=== PATIENT | male | born 1950 | race Caucasian/White ===

== ENCOUNTER 2021-05-22 22:46 | Emergency (ER) | payer MEDICARE, OTHER ==
--- OUTSIDE RECORDS SUMMARY | 2021-05-22 22:55 | XMS REPORT | Encounter Summary ---
Author Author Department of [facility] KAVEH hudson Organization Department of [facility] Aff rs Address Unknown Phone Unavailable Care Team Providers Care Prosthetic Dentist Name Role Phone RADHA NAYLOR PCP Unavailable Insurance Providers: All historical and current Section Date Range: From patient's date of to the date document was create d. This section includes the names of all active insurance providers for the julieth allen Insurance Provider Type of Coverage Plan Name Start of Policy [place] End of Policy Coverage Group Number Member ID Insurance Provider's Telephone N umber Policy [place]'s Name Patient's Relationship to Policy [place] MEDICARE (WNR) MEDICARE (M) PART A Oct 08, 2005 PART A [id number] [phone] KAVEH NGUYEN PATIENT MEDICARE (WNR) MEDICARE (M) PART B Oct 08, 2005 PART B [id number] [phone] KAVEH NGUYEN PATIENT MEDICARE (WNR) MEDICARE (M) PART A Oct 08, 2005 PART A [id number] KAVEH NGUYEN PATIENT MEDICARE (WNR) MEDICARE (M) PART B Oct 08, 2005 PART B [id number] KAVEH NGUYEN PATIENT MEDICARE (WNR) MEDICARE (M) PART A Oct 08, 2005 PART A [id number] KAVEH NGUYEN PATIENT MEDICARE (WNR) MEDICARE (M) PART B Oct 08, 2005 PART B [id number] KAVEH NGUYEN PATIENT Selected Encounter This section includes the information on record at [place] for the Encounter. Date/Time Encounter Type Encounter Description Reason Provider Source Nov 24, 2020 02:10 PM Outpatient Encounter ADMIN PAT ACTIVTIES (MICA SILVA) IHE Encounter Template Text not used by [facility] Assessments - Encounter Diagnoses No Data Provided for This Section Plan of Treatment: Future Appointments (+ 6 months) and Future Tests (+/- 45 day s) No Data Provided for This Section Surgical Procedures: All associated to the encounter No Data Provided for This Section Lab Results: +/- 30 days of the encounter No Data Provided for This Section Vital Signs: All taken on the encounter date No Data Provided for This Section Immunizations: All administered on the encounter date No Data Provided for This Section Social History: Smoking Status (Most current) and Tobacco Use (All prior to enco unter date) This section includes the most current, and the historical, smoking and tobacco- related health factors from the [place] facility where the Encounter took place. Current Smoking Status This section includes the most current smoking, or tobacco -related health factor, from the [place] facility where the Encounter took place. Date/Time Current Smoking Status Comment Facility Apr 01, 2014 11:00 AM NEVER USED TOBACCO or not in last 7yrs [facility] Tobacco Use History This section includes a history of the smoking, or tobacco -related health factors, that were collected on or before the date of the Encoun ter. The data comes from the [place] facility where the Encounter took place. Date/Time Smoking Status/Tobacco Use Comment [facility] Apr 01, 2014 11:00 AM V16 TOBACCO CESSATION > 7 YR [facility] Apr 01, 2014 11:00 AM V16 TOBACCO USE SCREEN [facility] February 17, 2013 11:00 AM NEVER USED TOBACCO or not in last 7yrs [facility] February 17, 2013 11:00 AM V16 TOBACCO CESSATION > 7 YR [facility] February 17, 2013 11:00 AM V16 TOBACCO USE SCREEN [facility] Jul 06, 2011 09:30 AM NEVER USED TOBACCO or not in last 7yrs [facility] Jul 06, 2011 09:30 AM V16 TOBACCO CESSATION > 7 YR [facility] Jul 06, 2011 09:30 AM V16 TOBACCO USE SCREEN [facility] Aug 09, 2007 03:00 PM NEVER USED TOBACCO or not in last 7yrs [facility] Nov 22, 2004 10:00 AM TOBACCO CESSATION: <1 YEAR QUIT IN 1985 [facility] Advance Directives: All historical and current Section Date Range: From patient's date of to the date document was create d. This section includes ALL of a patient's completed or amen ded VA Advance and Rescinded Directives. The entries below indicate that a direc tive exists for the patient, but an actual copy is not included with this docume nt. The data comes from all [place] facilities. Date Advance Directives Provider Source February 17, 2013 ADVANCE DIRECTIVE DISCUSSION BRUCE SUMMERS [facility]len [facility] Radiology Reports: +/- 30 days of the encounter No Data Provided for This Section Pathology Reports: +/- 30 days of the encounter No Data Provided for This Section Encounter Notes: All associated encounter notes This section contains the clinical notes associated to the Encounter. Date/Time Encounter Note(s) Provider Source Nov 24, 2020 02:10 PM CAREGIVER CERTIFICATE: LOCAL TITLE: CSP SUPPORT NOTE STANDARD TITLE: CAREGIVER CERTIFICATE DATE OF NOTE: NOV 24, 2020@14:10 ENTRY DATE: NOV 24, 2020@14:10:37 AUTHOR: KRISHNA RUCKER MA COSIGNER: URGENCY: STATUS: COMPLETED CSC attempted to contact and his SO/CG to f/u on their application for the CSP PCAFC. There was no answer. CSC left a v-mail requesting a return call. /stephanie/ KRISHNA RUCKER TEACHER MUSIC Signed: 11/24/2020 14:11 KRISHNA RUCKER [facility]
--- OUTSIDE RECORDS SUMMARY | 2021-05-22 22:55 | XMS REPORT | Encounter Summary ---
Author Author Department of [facility] KAVEH hudson Organization Department of [facility] Aff rs Address Unknown Phone Unavailable Care Team Providers Care Metal Furniture Repairer Name Role Phone RADHA NAYLOR PCP Unavailable [...] PART A Oct 08, 2005 PART A [id number] 84A [phone] KAVEH NGUYEN PATIENT MEDICARE (WNR) MEDICARE (M) PART B Oct 08, 2005 PART B [id number] 84A [phone] KAVEH NGUYEN PATIENT MEDICARE (WNR) MEDICARE (M) PART A Oct 08, 2005 PART A [id number] KAVEH NGUYEN PATIENT MEDICARE (WNR) MEDICARE (M) PART B Oct 08, 2005 PART B [id number] KAVEH NGUYEN PATIENT MEDICARE (WNR) MEDICARE (M) PART A Oct 08, 2005 PART A [id number] KAVEH NGUYEN PATIENT MEDICARE (WNR) MEDICARE (M) PART B Oct 08, 2005 PART B [id number] 84A [phone] KAVEH NGUYEN PATIENT Selected Encounter This section includes the information on record at [place] for the Encounter. Date/Time Encounter Type Encounter Description Reason Provider Source Sep 28, 2020 01:25 PM Outpatient Encounter ADMIN PAT ACTIVTIES (MICA SILVA) IHE Encounter Template Text not used by [place] Assessments - Encounter Diagnoses No Data Provided [...] and tobacco- related health factors from the [place] facility where the Encounter took place. Current Smoking Status This section includes the most current smoking, or tobacco -related health factor, from the [place] facility where the Encounter took place. Date/Time Current Smoking Status Comment Facility Apr 01, 2014 11:00 AM NEVER USED TOBACCO or not in last 7yrs [facility] Tobacco Use History This section includes a history of the smoking, or tobacco -related health factors, that were collected on or before the date of the Encoun ter. The data comes from the [place] facility where the Encounter took place. Date/Time Smoking Status/Tobacco Use Comment [facility] Apr 01, 2014 11:00 AM V16 TOBACCO CESSATION > 7 YR [facility] Apr 01, 2014 11:00 AM V16 TOBACCO USE SCREEN [facility] February 17, 2013 11:00 AM NEVER USED TOBACCO or not in last 7yrs [facility] February 17, 2013 11:00 AM V16 TOBACCO CESSATION > 7 YR [facility] February 17, 2013 11:00 AM V16 TOBACCO USE SCREEN [facility] Jul 06, 2011 09:30 AM NEVER USED TOBACCO or not in last 7yrs [facility] Jul 06, 2011 09:30 AM V16 TOBACCO CESSATION > 7 YR [facility] Jul 06, 2011 09:30 AM V16 TOBACCO USE SCREEN [facility] Aug 09, 2007 03:00 PM NEVER USED TOBACCO or not in last 7yrs [facility] Nov 22, 2004 10:00 AM TOBACCO CESSATION: <1 YEAR QUIT IN 1985 [facility] Advance Directives: All historical and current Section [...] docume nt. The data comes from all [place] facilities. Date Advance Directives Provider Source February 17, 2013 ADVANCE DIRECTIVE DISCUSSION BRUCE SUMMERS [facility] Radiology Reports: +/- 30 days of the encounter No Data Provided for This Section Pathology Reports: +/- 30 days of the encounter No Data Provided for This Section Encounter Notes: All associated encounter notes This section contains the clinical notes associated to the Encounter. Date/Time Encounter Note(s) Provider Source Sep 28, 2020 01:25 PM ADMINISTRATIVE NOTE: LOCAL TITLE: PATIENT SCHEDULING NOTE STANDARD TITLE: ADMINISTRATIVE NOTE DATE OF NOTE: SEP 28, 2020@13:25 ENTRY DATE: SEP 28, 2020@13:25:09 AUTHOR: SIRIA PEDRO EXP COSIGNER: URGENCY: STATUS: COMPLETED PATIENT SCHEDULING NOTE Has ADDENDA Clinic scheduling for: [facility] VIDEO CONNECT Reason for scheduling: CONSULT Attempt to Contact by Telephone Called patient at: Left voicemail for patient to return call to clinic /stephanie/ SIDNEY Brown Telehealth Clinical Pit Supervisor Signed: 09/28/2020 13:26 09/29/2020 ADDENDUM STATUS: COMPLETED Patient Returned Call SPOKE WITH [facility]ARE[facility] Patient's identity verified by two identifiers: Full Name: KAVEH NGUYEN Date of : February CAREGIVER WISHES TO BE CALLED BACK AFTER ANISH HOLIDAY /SIDNEY Lama Telehealth Clinical Pit Supervisor Signed: 09/29/2020 10:15 SIRIA PEDRO [facility]
--- OUTSIDE RECORDS SUMMARY | 2021-05-22 22:55 | XMS REPORT | Encounter Summary ---
Author Author Department of [facility] KAVEH hudson Organization Department of [facility] rs Address Unknown Phone Unavailable Care Team Providers Care Rfp Writer Name Role Phone RADHA NAYLOR PCP Unavailable [...] PART A Oct 08, 2005 PART A [id number] 84A [phone] KAVEH NGUYEN PATIENT MEDICARE (WNR) MEDICARE (M) PART B Oct 08, 2005 PART B [id number] 84A [phone] KAVEH NGUYEN PATIENT MEDICARE (WNR) MEDICARE (M) PART A Oct 08, 2005 PART A [id number] KAVEH NGUYEN PATIENT MEDICARE (WNR) MEDICARE (M) PART B Oct 08, 2005 PART B [id number] KAVEH NGUYEN PATIENT MEDICARE (WNR) MEDICARE (M) PART A Oct 08, 2005 PART A [id number] [phone] KAVEH NGUYEN PATIENT MEDICARE (WNR) MEDICARE (M) PART B Oct 08, 2005 PART B [id number] 84A [phone] KAVEH NGUYEN PATIENT Selected Encounter This section includes the information on record at [place] for the Encounter. Date/Time Encounter Type Encounter Description Reason Provider Source Jun 28, 2020 12:00 AM Outpatient Encounter EVENT (HISTORICAL) IHE Encounter Template Text not used by [place] Assessments - Encounter Diagnoses No Data Provided [...] and tobacco- related health factors from the [place] facility where the Encounter took place. Current Smoking Status This section includes the most current smoking, or tobacco -related health factor, from the [place] facility where the Encounter took place. Date/Time Current Smoking Status Comment Facility Apr 01, 2014 11:00 AM NEVER USED TOBACCO or not in last 7yrs [facility] Tobacco Use History This section includes a history of the smoking, or tobacco -related health factors, that were collected on or before the date of the Encoun ter. The data comes from the [place] facility where the Encounter took place. Date/Time Smoking Status/Tobacco Use Comment [facility] Apr 01, 2014 11:00 AM V16 TOBACCO CESSATION > 7 YR [facility] Apr 01, 2014 11:00 AM V16 TOBACCO USE SCREEN [facility] February 17, 2013 11:00 AM NEVER USED TOBACCO or not in last 7yrs [facility] February 17, 2013 11:00 AM V16 TOBACCO CESSATION > 7 YR [facility] February 17, 2013 11:00 AM V16 TOBACCO USE SCREEN [facility] Jul 06, 2011 09:30 AM NEVER USED TOBACCO or not in last 7yrs [facility] Jul 06, 2011 09:30 AM V16 TOBACCO CESSATION > 7 YR [facility] Jul 06, 2011 09:30 AM V16 TOBACCO USE SCREEN [facility] Aug 09, 2007 03:00 PM NEVER USED TOBACCO or not in last 7yrs [facility] Nov 22, 2004 10:00 AM TOBACCO CESSATION: <1 YEAR QUIT IN 1985 [facility] Advance Directives: All historical and current Section [...] docume nt. The data comes from all [place] facilities. Date Advance Directives Provider Source February 17, 2013 ADVANCE DIRECTIVE DISCUSSION BRUCE SUMMERS [place] [facility] Radiology Reports: +/- 30 days of the encounter No Data Provided for This Section Pathology Reports: +/- 30 days of the encounter No Data Provided for This Section Encounter Notes: All associated encounter notes This section contains the clinical notes associated to the Encounter. Date/Time Encounter Note(s) Provider Source Jun 28, 2020 12:00 AM SCANNED NOTE: LOCAL TITLE: OUTSIDE CLINICAL DOCUMENTS STANDARD TITLE: SCANNED NOTE DATE OF NOTE: JUN 28, 2020 ENTRY DATE: OCT 16, 2020@13:46:34 AUTHOR: ROLAND COLLINS EXP COSIGNER: URGENCY: STATUS: COMPLETED VistA Imaging - Scanned Document SCANNED DOCUMENT SIGNATURE NOT REQUIRED Electronically Filed: 10/16/2020 by: ROLAND collins [facility]
--- OUTSIDE RECORDS SUMMARY | 2021-05-22 22:55 | XMS REPORT | Encounter Summary ---
Author Author Department of [facility] KAVEH hudson Organization Department of [facility] Aff rs Address Unknown Phone Unavailable Care Team Providers Care Puddler Helper Name Role Phone RADHA NAYLOR PCP Unavailable [...] PART A Oct 08, 2005 PART A [id number] 84A [phone] KAVEH NGUYEN PATIENT MEDICARE (WNR) MEDICARE (M) PART B Oct 08, 2005 PART B [id number] [phone] KAVEH NGUYEN PATIENT MEDICARE (WNR) MEDICARE (M) PART A Oct 08, 2005 PART A [id number] KAVEH NGUYEN PATIENT MEDICARE (WNR) MEDICARE (M) PART B Oct 08, 2005 PART B [id number] KAVEH NGUYEN PATIENT MEDICARE (WNR) MEDICARE (M) PART A Oct 08, 2005 PART A [id number] KAVEH NGUYEN PATIENT MEDICARE (WNR) MEDICARE (M) PART B Oct 08, 2005 PART B [id number] 84A [phone] KAVEH NGUYEN PATIENT Selected Encounter This section includes the information on record at [place] for the Encounter. Date/Time Encounter Type Encounter Description Reason Provider Source Sep 27, 2020 03:35 PM Outpatient Encounter ADMIN PAT ACTIVTIES (MICA SILVA) IHE Encounter Template Text not used by [place] Assessments - Encounter Diagnoses No Data Provided [...] and tobacco- related health factors from the [place] facility where the Encounter took place. Current Smoking Status This section includes the most current smoking, or tobacco -related health factor, from the [place] facility where the Encounter took place. Date/Time Current Smoking Status Comment Facility Apr 01, 2014 11:00 AM NEVER USED TOBACCO or not in last 7yrs [facility] Tobacco Use History This section includes a history of the smoking, or tobacco -related health factors, that were collected on or before the date of the Encoun ter. The data comes from the [place] facility where the Encounter took place. Date/Time Smoking Status/Tobacco Use Comment [facility] Apr 01, 2014 11:00 AM V16 TOBACCO CESSATION > 7 YR [facility] Apr 01, 2014 11:00 AM V16 TOBACCO USE SCREEN [facility] February 17, 2013 11:00 AM NEVER USED TOBACCO or not in last 7yrs [facility] February 17, 2013 11:00 AM V16 TOBACCO CESSATION > 7 YR [facility] February 17, 2013 11:00 AM V16 TOBACCO USE SCREEN [facility] Jul 06, 2011 09:30 AM NEVER USED TOBACCO or not in last 7yrs [facility] Jul 06, 2011 09:30 AM V16 TOBACCO CESSATION > 7 YR [facility] Jul 06, 2011 09:30 AM V16 TOBACCO USE SCREEN [facility] Aug 09, 2007 03:00 PM NEVER USED TOBACCO or not in last 7yrs [facility] Nov 22, 2004 10:00 AM TOBACCO CESSATION: <1 YEAR QUIT IN 1985 [facility] Advance Directives: All historical and current Section [...] docume nt. The data comes from all [place] facilities. Date Advance Directives Provider Source February 17, 2013 ADVANCE DIRECTIVE DISCUSSION BRUCE SUMMERS [place] [facility] Radiology Reports: +/- 30 days of the encounter No Data Provided for This Section Pathology Reports: +/- 30 days of the encounter No Data Provided for This Section Encounter Notes: All associated encounter notes This section contains the clinical notes associated to the Encounter. Date/Time Encounter Note(s) Provider Source Sep 27, 2020 03:35 PM CAREGIVER CERTIFICATE: LOCAL TITLE: CSP SUPPORT NOTE STANDARD TITLE: CAREGIVER CERTIFICATE DATE OF NOTE: SEP 27, 2020@15:35 ENTRY DATE: SEP 27, 2020@15:36:02 AUTHOR: KRISHNA RUCKER MA EXP COSIGNER: URGENCY: STATUS: COMPLETED CSP SUPPORT NOTE Has ADDENDA CSC made contact with CG to f/u on the medical records from [facility] and the VFAI that needs to be rescheduled. CG reports CSC needs to contact [facility] to request the records, as the [place] has completed the SUSY. CSC discussed the need to complete the VAFI as soon as possible as they are nearing their 90 days with pending anirudh. CG indicated they could not get the laptop to work. CG expressed she is in [place] with her dtr who is having surgery tomorrow and will come up on Sunday on his own. She reports that she is not sure he son-in-law is going to be able to help her as his will be having surgery. CG would like to do the practice call with the telehealth department. CSC to place consult and advised that once that is completed they need to get the VFAI rescheduled. CG voiced understanding and agreement with this plan. /stephanie/ KRISHNA RUCKER LCSW Signed: 09/28/2020 07:52 Receipt Acknowledged By: 09/28/2020 13:57 /stephanie/ Elinor FLYNN,geothermal installer Nurse 09/28/2020 ADDENDUM STATUS: COMPLETED CSRN received a VM from [facility]. She verbalized she was not able to complete the connection with [facility] telehealth support line due to [place] does not work with [facility]. She has nephew who has a laptop and he will come with to [place] for [place]. She will have the nephew call this CSRN on during for VFAI. CSRN contacted [facility] which is in [place]. She reports the [place] is driving in tomorrow from [facility] and will take about 5 hours. This CSRN was not able to accommodate requested times/days for VFAI. [facility] reports no other options as she has to care for her daughter for 2 weeks. Due to difficulty with coordinating assistance for [place] VVC appt, LOLYN offered in person visit for [place] at [facility] in [facility] and explained to [facility] she does not need to be present for assessment. CSRN was not able to reach [place] via phone and ask that [facility] inform [place] of offer. CSC notified. /mikey FLYNN,geothermal installer Nurse Signed: 09/28/2020 14:16 Receipt Acknowledged By: 10/05/2020 08:25 /mikey RUCKER LCSW 09/28/2020 ADDENDUM STATUS: COMPLETED [facility] left message for CSRN to schedule 10/06/2020 at 1000 for Nephew to assist with VFAI with [place]. CSRN attempted to reach [facility] via phone and only received VM. Message left confirming appt for 10/06/2020 at 10am. /mikey FLYNN,geothermal installer Nurse Signed: 09/28/2020 14:56 Receipt Acknowledged By: 10/05/2020 08:26 /mikey RUCKER LCSW 10/06/2020 ADDENDUM STATUS: COMPLETED 10/05/2020 8am: VVC scheduled with Raymundo R for today 10/05/2020 at 10 am. CSRN received call from [facility] requesting someone call and try to set up a VVC via his phone as he was not with her in [place]. CSRN did contact who was not able to utilize phone as it was a "go phone" without access to email. CSRN informed [place] visit for today would be cancelled and attempted to offer other opportunities for assessment. declined in person at [place], declined asking family to assist. CSRN informed of [place] of need to complete VFAI prior to 90 days or will need to reapply. [place] reported to he would see if he could find someone and call back. /es/ Elinor Ortiz MSN,geothermal installer Nurse Signed: 10/06/2020 13:15 Receipt Acknowledged By: 10/06/2020 13:18 /stephanie/ KRISHNA CALDERON LCSW [facility]
--- OUTSIDE RECORDS SUMMARY | 2021-05-22 22:55 | XMS REPORT | Encounter Summary ---
Author Author Department of [facility] KAVEH hudson Organization Department of [facility] Aff rs Address Unknown Phone Unavailable Care Team Providers Care Mopper Name Role Phone RADHA NAYLOR PCP Unavailable [...] PART A Oct 08, 2005 PART A [id number] [phone] KAVEH NGUYEN PATIENT MEDICARE (WNR) MEDICARE (M) PART B Oct 08, 2005 PART B [id number] [phone] KAVEH NGUYEN PATIENT MEDICARE (WNR) MEDICARE (M) PART A Oct 08, 2005 PART A [id number] KAVEH NGUYEN PATIENT MEDICARE (WNR) MEDICARE (M) PART B Oct 08, 2005 PART B [id number] KAVEH NGUYEN PATIENT MEDICARE (WNR) MEDICARE (M) PART A Oct 08, 2005 PART A [id number] [phone] KAVEH NGUYEN PATIENT MEDICARE (WNR) MEDICARE (M) PART B Oct 08, 2005 PART B [id number] KAVEH NGUYEN PATIENT Selected Encounter This section includes the information on record at [place] for the Encounter. Date/Time Encounter Type Encounter Description Reason Provider Source Nov 18, 2020 01:39 PM Outpatient Encounter ADMIN PAT ACTIVTIES (IRAIDA NONCJerome) PASTORA MCCLOUD Encounter Template Text not used by VA [...] and tobacco- related health factors from the [place] facility where the Encounter took place. Current Smoking Status This section includes the most current smoking, or tobacco -related health factor, from the [place] facility where the Encounter took place. Date/Time Current Smoking Status Comment Facility Apr 01, 2014 11:00 AM NEVER USED TOBACCO or not in last 7yrs [facility] Tobacco Use History This section includes a history of the smoking, or tobacco -related health factors, that were collected on or before the date of the Encoun ter. The data comes from the [place] facility where the Encounter took place. Date/Time Smoking Status/Tobacco Use Comment [facility] Apr 01, 2014 11:00 AM V16 TOBACCO CESSATION > 7 YR [facility] Apr 01, 2014 11:00 AM V16 TOBACCO USE SCREEN [facility] February 17, 2013 11:00 AM NEVER USED TOBACCO or not in last 7yrs [facility] February 17, 2013 11:00 AM V16 TOBACCO CESSATION > 7 YR [facility] February 17, 2013 11:00 AM V16 TOBACCO USE SCREEN [facility] Jul 06, 2011 09:30 AM NEVER USED TOBACCO or not in last 7yrs [facility] Jul 06, 2011 09:30 AM V16 TOBACCO CESSATION > 7 YR [facility] Jul 06, 2011 09:30 AM V16 TOBACCO USE SCREEN [facility] Aug 09, 2007 03:00 PM NEVER USED TOBACCO or not in last 7yrs [facility] Nov 22, 2004 10:00 AM TOBACCO CESSATION: <1 YEAR QUIT IN 1985 [facility] Advance Directives: All historical and current Section [...] docume nt. The data comes from all [place] facilities. Date Advance Directives Provider Source February 17, 2013 ADVANCE DIRECTIVE DISCUSSION [facility] Radiology Reports: +/- 30 days of the encounter No Data Provided for This Section Pathology Reports: +/- 30 days of the encounter No Data Provided for This Section Encounter Notes: All associated encounter notes This section contains the clinical notes associated to the Encounter. Date/Time Encounter Note(s) Provider Source Nov 18, 2020 01:39 PM CAREGIVER CERTIFICATE: LOCAL TITLE: CSP PCAFC CEAT REVIEW CONSULT STANDARD TITLE: CAREGIVER CERTIFICATE DATE OF NOTE: NOV 18, 2020@13:39 ENTRY DATE: NOV 18, 2020@13:40:09 AUTHOR: PASTORA MCCLOUD COSIGNER: URGENCY: STATUS: COMPLETED Centralized Eligibility and Appeals Team (CEAT) Review Note The Centralized Eligibility and Appeals Team is responsible for dispositioning initial and ongoing eligibility determinations, to include level of care, as well as appeal determinations within the Caregiver Support Program's (CSP) Program of Comprehensive Assistance for Family Caregivers (PCAFC). PCAFC is a clinical program involving initial assessment and periodic reassessment for continued eligibility based on the needs of the eligible and/or Family Caregivers. Decisions to discontinue an individual's participation may be impacted by changes in the [place] and/or Family Caregiver(s)' circumstances, changes in needs or abilities, or VA may seek to discharge a participant due to failure to meet expectations or otherwise adhere to the intent of the program. Date of CEAT Review: Nov Full Name: KAVEH NGUYEN Iliana SSN: [id number] Date of : February Address: [address], [facility] Phone number: Reasons for CEAT review: Initial Application Review and at least one Family Caregiver applicant have submitted a valid application for the PCA. 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 Yes 3) The individual is in need of personal care services for a minimum of six continuous months based on any one of the following: An inability to perform an activity of daily living or A need for supervision, protection, or instruction *In need of personal care services means that the eligible [place] requires in-person personal care services from another person, and without such personal care services, alternative in-person caregiving arrangements (including respite care or assistance of an alternative caregiver) would be required to support the eligible [place]'s safety. *Personal Care Services means care or assistance of another person necessary in order to support the eligible 's health and well-being, and perform personal functions required in everyday living ensuring the eligible [place] remains safe from hazards or dangers incident to his or her daily environment. No 4) It is in the best interest of the individual to participate in the program. *In the best interest means a clinical determination that participation in PCA is likely to be beneficial to the [place] or media services specialist. Such determination will include consideration, by a clinician, of whether participation in the program significantly enhances the 's or media services specialist's ability to live safely in a home setting, supports the [place]'s or media services specialist's potential progress in rehabilitation, if such potential exists, increases the [place]'s or media services specialist's potential independence, if such potential exists, and creates an environment that supports the health and well-being of the or media services specialist. No 5) Personal care services that would be provided by the Family Caregiver will not be simultaneously and regularly provided by or through another individual or entity. Yes 6)The individual receives care at home or will do so if [place] designates a Family Caregiver. Yes 7) The individual receives ongoing care from a primary care team or will do so if [place] designates a Family Caregiver. *Primary care team means one or more medical services assistant who care for a patient based on the clinical needs of the patient. Primary care teams must include a VA primary care provider who is a physician, advanced practice nurse, or a physician early childhood teacher assistant. Yes CAREGIVER REQUIREMENTS Primary Family Caregiver applicant Primary Family Caregiver applicant name: Elinor Gillespie 1) Is the Primary Family Caregiver applicant 18 years of age or older? Yes 2) Is the Primary Family Caregiver applicant a family member or will live with the if designated as a Family Caregiver? Yes Relationship to : Significance other Residence of applicant: Same as . 3) Is there a determination by VA of abuse or neglect of the [place] by the Primary Family Caregiver applicant? No PROGRAM PARTICIPATION REQUIREMENTS 1)The application process is completed within 90 days. No Application delay is solely due to the VA. 2) The [place] or media services specialist resides in a State, defined as each of the several States, Territories, and possessions of the [place], the district of [place], and the [facility]. Yes DETERMINATION SECTION Denied - The and Family Caregiver applicant have been found not eligible for the Program of Comprehensive Assistance for Family Caregivers. - or media services specialist does not require personal care services for a minimum of 6 continuous months based on an inability to perform an ADL and/or a need for supervision, protection or instruction. - Participation in the Program of Comprehensive Assistance for Family Caregivers was deemed not in the [place]'s best interest Centralized Eligibility and Appeals Team summary of determination: The VISN 19 CEAT reviewed all available records and discussed the application on the date indicated above. There was insufficient objective clinical documentation supporting a need for personal care services meeting the statutory requirements (38 U.S.C. 1720G(a)(3)(C)(ii), (iv)). See 85 FR 02387 (December 12, 2019) [[employer] [place] / Vol. 85, No. 148 / May 07, 2020, p. 52466]. The [place] should continue to follow-up with their primary care team and/or other provider(s). /stephanie/ Pastora Mccloud MD MPH Board Certified Physical Med & Rehab Signed: 11/18/2020 13:42 Receipt Acknowledged By: * AWAITING SIGNATURE * BENJAMIN RAMSAY * AWAITING SIGNATURE * SIRENA DEL ROSARIO * AWAITING SIGNATURE * KRISHNA RUCKER ANGELICA C [facility]
--- OUTSIDE RECORDS SUMMARY | 2021-05-22 22:55 | XMS REPORT | Encounter Summary ---
Author Author Department of [facility] KAVEH hudson Organization Department of [facility] rs Address Unknown Phone Unavailable Care Team Providers Care Plaster Molder Name Role Phone RADHA NAYLOR PCP Unavailable [...] PART A Oct 08, 2005 PART A [id number] [phone] KAVEH NGUYEN PATIENT MEDICARE (WNR) MEDICARE (M) PART B Oct 08, 2005 PART B [id number] [phone] KAVEH NGUYEN PATIENT MEDICARE (WNR) MEDICARE (M) PART A Oct 08, 2005 PART A [id number] KAVEH NGUYEN PATIENT MEDICARE (WNR) MEDICARE (M) PART B Oct 08, 2005 PART B [id number] KAVEH NGUYEN PATIENT MEDICARE (WNR) MEDICARE (M) PART A Oct 08, 2005 PART A [id number] [phone] KAVEH NGUYEN PATIENT MEDICARE (WNR) MEDICARE (M) PART B Oct 08, 2005 PART B [id number] [phone] KAVEH NGUYEN PATIENT Selected Encounter This section includes the information on record at [place] for the Encounter. Date/Time Encounter Type Encounter Description Reason Provider Source May 16, 2021 11:41 AM Outpatient Encounter ADMIN PAT ACTIVTIES (MICA SILVA) IHE Encounter Template Text not used by [place] Assessments - Encounter Diagnoses No Data Provided [...] Use (All prior to enco unter date) No Data Provided for This Section Advance Directives: All historical and current Section [...] docume nt. The data comes from all [place] facilities. Date Advance Directives Provider Source February 17, 2013 ADVANCE DIRECTIVE DISCUSSION [facility] Radiology Reports: +/- 30 days of the encounter No Data Provided for This Section Pathology Reports: +/- 30 days of the encounter No Data Provided for This Section Encounter Notes: All associated encounter notes This section contains the clinical notes associated to the Encounter. Date/Time Encounter Note(s) Provider Source May 16, 2021 11:41 AM LETTERS: LOCAL TITLE: PATIENT SCHEDULING LETTER STANDARD TITLE: LETTERS DATE OF NOTE: MAY 16, 2021@11:41 ENTRY DATE: MAY 16, 2021@11:41:56 AUTHOR: VINAYAK HERNANDEZ EXP COSIGNER: URGENCY: STATUS: COMPLETED [place], [place] [address] MAY 16, 2021 KAVEH NGUYEN [address] [place] [id number] Dear , We have attempted to contact you regarding your care at the [facility]. We have been unsuccessful in our attempts to reach you by telephone. Your health and well-being are important to us. Please call to schedule a patient appointment for clinical care, or for requested consult care. These phone numbers are answered between 8:00 AM and 4:00 PM. If calling after hours, please leave a message with your full name and contact information. If you have decided that you do NOT wish to receive care at the [facility] or you no longer wish to have your consult scheduled,please call the above number to let us know so that we will not keep trying to contact you. Thank you for your service to our Nation. It is our mission to honor [place] [employer] by providing them with exceptional, timely, [place] centered care. Sincerely, [facility] [address] [place], [place] [address] If you have already spoken with us regarding this scheduling, please disregard this letter. VINAYAK HERNANDEZ [facility]
--- OUTSIDE RECORDS SUMMARY | 2021-05-22 22:55 | XMS REPORT | Encounter Summary ---
Author Author Department of [facility] KAVEH hudson Organization Department of [facility] rs Address Unknown Phone Unavailable Care Team Providers Care Investor Relations Manager Name Role Phone RADHA NAYLOR PCP Unavailable [...] PART A Oct 08, 2005 PART A [id number] [phone] KAVEH NGUYEN PATIENT MEDICARE (WNR) MEDICARE (M) PART B Oct 08, 2005 PART B [id number] [phone] KAVEH NGUYEN PATIENT MEDICARE (WNR) MEDICARE (M) PART A Oct 08, 2005 PART A [id number] KAVEH NGUYEN PATIENT MEDICARE (WNR) MEDICARE (M) PART B Oct 08, 2005 PART B [id number] KAVEH NGUYEN PATIENT MEDICARE (WNR) MEDICARE (M) PART A Oct 08, 2005 PART A [id number] KAVEH NGUYEN PATIENT MEDICARE (WNR) MEDICARE (M) PART B Oct 08, 2005 PART B [id number] KAVEH NGUYEN PATIENT Selected Encounter This section includes the information on record at [place] for the Encounter. Date/Time Encounter Type Encounter Description Reason Provider Source Oct 07, 2020 05:45 PM [facility]ICE OF RN EA 15 MIN CAREGIVER SUPP ORT PROGRAM ICD-10-CM Z78.9 Other specified health status with Provider Comments: Other specified Health Status JORDANMARCUS Hussein NICKRaymundo Encounter Template Text not used by [place] Assessments - Encounter Diagnoses This section includes the primary and secondary diag noses documented for the Encounter. Date/Time Primary/Secondary Diagnosis Diagnosis Name Provider Source Oct 12, 2020 12:12 PM PRIMARY Other specified health status MARCUS [facility] Plan of Treatment: Future Appointments (+ 6 months) and Future Tests (+/- 45 day s) No Data Provided for This Section Surgical Procedures: All associated to the encounter This section includes all Surgical Procedures and Surgical Procedure Notes assoc iated to the Encounter. Surgical Procedures This section includes all Surgical Procedures associated to the Encounter. Surgical Procedure Date/Time Procedure Procedure Type Procedure Qualifiers Provider Source Oct 07, 2020 05:45 PM [facility] [place] of a Registered Nurse (RN) in the Home Health or Hospice Setting, each 15 minutes [facility] RN JOSE F [address] [facility] Surgical Notes There are no notes associated with this procedure. Lab Results: +/- 30 days of the [...] USED TOBACCO or not in last 7yrs [facility] Tobacco Use History This section includes a history of the smoking, or tobacco -related health factors, that were collected on or before the date of the Encoun ter. The data comes from the [place] facility where the Encounter took place. Date/Time Smoking Status/Tobacco Use Comment [facility] Apr 01, 2014 11:00 AM V16 TOBACCO CESSATION > 7 YR [facility] Apr 01, 2014 11:00 AM V16 TOBACCO USE [facility]CRE[address] [facility] February 17, 2013 11:00 AM NEVER USED TOBACCO or not in last 7yrs [facility] February 17, 2013 11:00 AM V16 TOBACCO CESSATION > 7 YR [facility] February 17, 2013 11:00 AM V16 [address] [facility]CRE[address] [facility] Jul 06, 2011 09:30 AM NEVER USED TOBACCO or not in last 7yrs [facility] Jul 06, 2011 09:30 AM V16 TOBACCO CESSATION > 7 YR [facility] Jul 06, 2011 09:30 AM V[address] [facility] Aug 09, 2007 03:00 PM NEVER USED TOBACCO or not in last 7yrs [facility] Nov 22, 2004 10:00 AM TOBACCO CESSATION: <1 [address] [place] [address] [facility] Advance Directives: All historical and current Section Date Range: From patient's date of to the date document was create d. This section includes ALL of a patient's completed or amen ded [place] Advance and Rescinded Directives. The entries below indicate that a direc tive exists for the patient, but an actual copy is not included with this docume nt. The data comes from all [place] facilities. Date Advance Directives Provider Source February 17, 2013 ADVANCE DIRECTIVE DISCUSSION BRUCE SUMMERS [facility] Radiology Reports: +/- 30 days of the encounter No Data Provided for This Section Pathology Reports: +/- 30 days of the encounter No Data Provided for This Section Encounter Notes: All associated encounter notes This section contains the clinical notes associated to the Encounter. Date/Time Encounter Note(s) Provider Source Oct 07, 2020 05:45 PM CAREGIVER CERTIFICATE: LOCAL TITLE: CSP PCAFC FUNCTIONAL ASSESSMENT INSTRUMENT STANDARD TITLE: CAREGIVER CERTIFICATE DATE OF NOTE: OCT 07, 2020@17:45 ENTRY DATE: OCT 12, 2020@11:41:07 AUTHOR: MARCUS GRAHAM EXP COSIGNER: URGENCY: STATUS: COMPLETED FUNCTIONAL ASSESSMENT INSTRUMENT The Program of Comprehensive Assistance for Family Caregivers (PCAFC) provides services and additional benefits to approved and designated Family Caregivers of eligible Veterans or service members who are in need of personal care services for a minimum of six continuous months based on any one of the following: - An inability to perform an activity of daily living; or - A need for supervision, protection, or instruction. The assessment of the need for personal care services is just one piece of the overall application process. This Functional Assessment Instrument captures the or service desk agent's functional needs, as it relates to the requirements for the [facility]. This assessment instrument should only be used with Veterans or service members who have applied to the [facility] and a consult has been placed for this assessment by a Caregiver Mink Rancher. The author completing this assessment must be in compliance with all required Caregiver Support Program and VA trainings. PART A: ACTIVITIES OF DAILY LIVING (ADLs) EATING Eating: Independent Defined as: The ability to use suitable utensils to bring food and/or liquid to the mouth and swallow food and/or liquid once the meal is placed before the person. GROOMING Oral hygiene: Independent Defined as: The ability to use suitable items to clean teeth. If applicable, the ability to insert and remove dentures into and from the mouth, and manage denture soaking and rinsing with use of equipment. Wash upper body: Independent Defined as: The ability to wash, rinse, and dry the face, hands, chest, and arms while sitting in a chair or bed. BATHING Shower/bathe self: Independent Defined as: The ability to bathe self, including washing, rinsing, and drying self. Does not include transferring in/out of tub/shower. DRESSING AND UNDRESSING Upper body dressing: Independent Defined as: The ability to dress and undress above the waist, including fasteners (if applicable). Lower body dressing: Independent Defined as: The ability to dress and undress below the waist, including fasteners; does not include footwear. Putting on/taking off footwear: Independent Defined as: The ability to put on and take off socks and shoes, or other footwear that is appropriate for safe mobility, including fasteners (if applicable). TOILETING Toileting hygiene: Independent Defined as: The ability to maintain perineal/menstrual hygiene and adjust clothes before and after voiding or having a bowel movement. If managing an ostomy, include wiping the opening but not managing equipment. PROSTHETICS Prosthetics (Use of Assistive Devices): Independent Defined as: Able to adjust special prosthetic or orthopedic appliances. The adjustment of appliances that any person with or without a disability would need assistance with should not be scored (for example, supports, belts, lacing at back, etc.). MOBILITY (POSITIONING/TRANSFERS) Roll left and right: Independent Defined as: The ability to roll from lying on back to left and right side, and return to lying on back. Sit to lying: Independent Defined as: The ability to move from sitting on side of bed to lying flat on the bed. Lying to sitting on side of bed: Independent Defined as: The ability to move from lying on the back to sitting on the side of the bed with feet flat on the floor and with no back support. Sit to stand: Independent Defined as: The ability to come to a standing position from sitting in a chair, wheelchair, or on the side of the bed. Chair/hcv-ee-[id number] transfer: Independent Defined as: The ability to transfer to and from a bed to a chair (or wheelchair). Toilet transfer: Independent Defined as: The ability to get on and off a toilet or commode. MOBILITY (WALKING) Walk 10 feet: Independent Defined as: Once standing, the ability to walk at least 10 feet in a room, corridor, or similar space. Walk 50 feet with two turns: Independent Defined as: Once standing, the ability to walk at least 50 feet and make two turns. Walk 150 feet: Independent Defined as: Once standing, the ability to walk at least 150 feet in a corridor or similar space. Walk 10 feet on uneven surfaces: Independent Defined as: The ability to walk 10 feet on uneven or sloping surfaces (indoor or outdoor) such as turf or gravel. 1 step (curb): Independent Defined as: The ability to go up and down a curb and/or up and down one step. 4 steps: Independent Defined as: The ability to go up and down four steps with or without a rail. 12 steps: Not applicable - Person does not usually do this activity Defined as: The ability to go up and down 12 steps with or without a rail. Picking up object: Independent Defined as: The ability to bend/stoop from a standing position to car pick up driver a small object, such as a spoon, from the floor. Walk indoors: Independent Defined as: The ability to walk from room to room, around furniture and other obstacles. Carry something in both hands: Independent Defined as: The ability to carry something in both hands while walking indoors (i.e., several dishes, light laundry basket, tray with food). Walk for 15 minutes: Not applicable - Person does not usually do this activity Defined as: The ability to walk without stopping or resting (i.e., through a department store, supermarket). Walk across a street: Independent Defined as: The ability to cross a street before light turns red. PART B: SUPERVISION, PROTECTION OR INSTRUCTION MEDICATION MANAGEMENT Does the person take any medication? Yes Does the person need assistance with medication management? Needs medication set-up Additional Comments: Beverly does not take any prescription medications. He does take supplements independently from bottles. He reports his CGER prepares a tea for his kidneys that contains "a lot of herbs and stuff". She mixes this up and stores in container for him to make "a tea everyday". SELF-PRESERVATION Does the person have the judgment and physical ability to cope, make appropriate decisions and take action in a changing environment or a potentially harmful situation? Independent Is this person at risk of self-neglect? No Beverly has the following risk factors: Not applicable Is this person at risk of neglect, abuse, or exploitation by another person? No What type of support does the person need in the home to remain safe, such as assistance with activities that require remembering, decision-making, or judgment? The person can be left alone without anyone checking in. What type of support does the person need away from home to remain safe, such as assistance with activities that require remembering, decision-making, or judgment? The person does not need help going anywhere. SAFETY Delusions/Hallucinations: Person engages in markedly inappropriate behavior that affects a person's daily functioning and social interactions. Behavior characterized by a radical change in personality and a distorted or diminished sense of reality. No Agitation: Person has a tendency, or would without an intervention, to suddenly or quickly become upset or violent. Yes Types(s) of agitation behaviors displayed: Easily agitated Type of intervention needed: Requires no intervention Frequency of intervention needed: Less than weekly Impulsivity: Person has a propensity, or would without an intervention, for sudden or spontaneous decisions or actions. No SELF-DIRECTION Can this person identify his/her own needs? Yes Can this person provide and/or arrange for his/her health and safety? Yes Additional Comments: VFAI completed today with via [facility] r/t COVID restrictions. and CGER have had difficulty with scheduling this visit r/t unable to connect to [facility] and CGER being out of town caring for family member. Today this CSRN contacted Beverly to work with him on what his plan was to complete this VFAI in relationship to time sensativity of application. The verbalized his 44 year old Nephew lived with him and letha salazar could assist. Nephew was able to install email on 's phone and connect via [facility]. CSRN offered to complete visit at this time with . denies Nephew's involvement in his care and only ask him to drive occasionally or mow the yard. reports uses [employer]xygen [employer]. Usually sleeps with it on. Has portable back pack devices. [place] and [place] with ADL's. He requires his Nephew or Significant Other(CGER) to provide transportation occasionally if traveling a distance (out of state). He utilizes the [facility] for health, dental and vision care. He takes no routine medications, only OTC supplements. He reports he drinks a herbal type tea made by CGER to prevent him from being on dialysis. He is not on any special diet. Beverly offered the opportunity to elaborate on the role of his significant other as his CGER. He reports he would probably be if it were not for her. 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 He attributes this to her help. No other needs ID by . Assessment completed Assessment time: /stephanie/ Marcus Graham MSN,computer support specialist Nurse Signed: 10/12/2020 12:09 Receipt Acknowledged By: * AWAITING SIGNATURE * KRISHNA RUCKER [facility]
--- OUTSIDE RECORDS SUMMARY | 2021-05-22 22:56 | XMS REPORT | Encounter Summary ---
Author Author Department of [facility] KAVEH hudson Organization Department of [facility] rs Address Unknown Phone Unavailable Care Team Providers Care Orchid Worker Name Role Phone RADHA NAYLOR PCP Unavailable [...] PART A Oct 08, 2005 PART A [id number] [id number] [phone] KAVEH NGUYEN PATIENT MEDICARE (WNR) MEDICARE (M) PART B Oct 08, 2005 PART B [id number] [phone] KAVEH NGUYEN PATIENT MEDICARE (WNR) MEDICARE (M) PART A Oct 08, 2005 PART A [id number] KAVEH NGUYEN PATIENT MEDICARE (WNR) MEDICARE (M) PART B Oct 08, 2005 PART B [id number] KAVEH NGUYEN PATIENT MEDICARE (WNR) MEDICARE (M) PART A Oct 08, 2005 PART A [id number] KAVEH NGUYEN PATIENT MEDICARE (WNR) MEDICARE (M) PART B Oct 08, 2005 PART B [id number] 84A [id number] KAVEH NGUYEN PATIENT Selected Encounter This section includes the information on record at [place] for the Encounter. Date/Time Encounter Type Encounter Description Reason Provider Source March 01, 2021 03:02 PM Outpatient Encounter COMMUNITY CARE CONSULT IHE Encounter Template Text not used by [...] of a patient's completed or amen ded [place] Advance and Rescinded Directives. The entries below indicate that a direc tive exists for the patient, but an actual copy is not included with this docume nt. The data comes from all [place] facilities. Date Advance Directives Provider Source February 17, 2013 ADVANCE DIRECTIVE DISCUSSION BRUCE SUMMERS [facility] Radiology Reports: +/- 30 days of the encounter No Data Provided for This Section Pathology Reports: +/- 30 days of the encounter No Data Provided for This Section Encounter Notes: All associated encounter notes This section contains the clinical notes associated to the Encounter. Date/Time Encounter Note(s) Provider Source February 25, 2021 03:02 PM NONVA NOTE: LOCAL TITLE: COMMUNITY CARE COORDINATION PLAN STANDARD TITLE: NONVA NOTE DATE OF NOTE: FEBRUARY 25, 2021@15:02 ENTRY DATE: MARCH 01, 2021@15:02:35 AUTHOR: KIRK BULL COSIGNER: URGENCY: STATUS: COMPLETED COMMUNITY CARE COORDINATION PLAN Has ADDENDA self-presented to community emergency facility Emergency Notification Intake Date Presenting to the Facility: February [facility] Hospital Name: Hospital: [facility] Address: City: [place] State: Zip Code: Phone : Chief complaint: Shortness of Breath Primary Diagnosis: Patient Admitted? Yes Route of Admission: ER Date/Time of Admission: Admitting Diagnosis: Shortness of Breath Community Care Provider: Confirm Level of Care: Community Facility Point of Contact: Name: ADMISSIONS [id number] [facility] (638) 02/25/2021 02/25/2021 WENDY LINN [id number] [address] [facility] [address] [facility] Yes Shortness of Breath Per sharepoint: Closed - Approved for 1703 Called [facility] and confirmed [place] is not currently inpatient PACT, to reduce redundancy, please request any documentation from the hospital that you deem necessary and have them scanned into the record. Thank you. Alerting PACT MACK Blanton /stephanie/ KIRK BULL RN Signed: 03/01/2021 15:08 Receipt Acknowledged By: 04/20/2021 16:54 /stephanie/ VINAYAK LUNDBERG RN 03/16/2021 10:55 /stephanie/ JEANMARIE CUTLER RN PACT NURSE 04/20/2021 ADDENDUM STATUS: COMPLETED Requested discharge summary notes from [facility] Name:[facility] [address] [place] [address] -awaiting at this time. /stephanie/ VINAYAK BLANTON RN Signed: 04/20/2021 16:54 KIRK BULL [facility]
--- OUTSIDE RECORDS SUMMARY | 2021-05-22 22:56 | XMS REPORT | Encounter Summary ---
Author Author Department of [facility] KAVEH hudson Organization Department of [facility] rs Address Unknown Phone Unavailable Care Team Providers Care Soap Inspector Name Role Phone RADHA NAYLOR PCP Unavailable [...] PART A Oct 08, 2005 PART A [id number] [id number] [phone] KAVEH NGUYEN PATIENT MEDICARE (WNR) MEDICARE (M) PART B Oct 08, 2005 PART B [id number] [phone] KAVEH NGUYEN PATIENT MEDICARE (WNR) MEDICARE (M) PART A Oct 08, 2005 PART A [id number] KAVEH NGUYEN PATIENT MEDICARE (WNR) MEDICARE (M) PART B Oct 08, 2005 PART B [id number] KAVEH NGUYEN PATIENT MEDICARE (WNR) MEDICARE (M) PART A Oct 08, 2005 PART A [id number] KAVEH NGUYEN PATIENT MEDICARE (WNR) MEDICARE (M) PART B Oct 08, 2005 PART B [id number] 84A [id number] KAVEH NGUYEN PATIENT Selected Encounter This section includes the information on record at [place] for the Encounter. Date/Time Encounter Type Encounter Description Reason Provider Source February 25, 2021 12:00 AM Outpatient Encounter ADMIN PAT ACTIVTIES (MICA SILVA) IHE Encounter Template Text not used by [place] Assessments - Encounter Diagnoses No Data Provided [...] docume nt. The data comes from all [place] facilities. Date Advance Directives Provider Source February 17, 2013 ADVANCE DIRECTIVE DISCUSSION BRUCE SUMMERS [facility] Radiology Reports: +/- 30 days of the encounter No Data Provided for This Section Pathology Reports: +/- 30 days of the encounter No Data Provided for This Section Encounter Notes: All associated encounter notes This section contains the clinical notes associated to the Encounter. Date/Time Encounter Note(s) Provider Source February 25, 2021 12:00 AM SCANNED REPORT: LOCAL TITLE: SCANNED OUTSIDE RECORDS STANDARD TITLE: SCANNED REPORT DATE OF NOTE: FEBRUARY 25, 2021 ENTRY DATE: MAY 03, 2021@06:41:22 AUTHOR: LAWSON CABRALES EXP COSIGNER: URGENCY: STATUS: COMPLETED VistA Imaging - Scanned Document [facility].CTR. - ED / DISCHARGE / DIAGNOSTIC TESTS /es/ LAWSON CABRALES CONSTRUCTION RECRUITER (SUSY) Signed: 05/03/2021 06:41 LAWSON CABRALES [facility]
--- OUTSIDE RECORDS SUMMARY | 2021-05-22 22:56 | XMS REPORT | Encounter Summary ---
Author Author Department of [facility] KAVEH hudson Organization Department of [facility] rs Address Unknown Phone Unavailable Care Team Providers Care Portuguese Tutor Name Role Phone RADHA NAYLOR PCP Unavailable [...] PART A Oct 08, 2005 PART A [id number] 84A [phone] KAVEH NGUYEN PATIENT MEDICARE (WNR) MEDICARE (M) PART B Oct 08, 2005 PART B [id number] 84A [phone] KAVEH NGUYEN PATIENT MEDICARE (WNR) MEDICARE (M) PART A Oct 08, 2005 PART A [id number] KAVEH NGUYEN PATIENT MEDICARE (WNR) MEDICARE (M) PART B Oct 08, 2005 PART B [id number] KAVEH NGUYEN PATIENT MEDICARE (WNR) MEDICARE (M) PART A Oct 08, 2005 PART A [id number] [id number] KAVEH NGUYEN PATIENT MEDICARE (WNR) MEDICARE (M) PART B Oct 08, 2005 PART B [id number] [id number] [id number] KAVEH NGUYEN PATIENT Selected Encounter This section includes the information on record at [place] for the Encounter. Date/Time Encounter Type Encounter Description Reason Provider Source Apr 27, 2021 11:43 AM Outpatient Encounter ADMIN PAT ACTIVTIES (MICA SILVA) IHE Encounter Template Text not used by [place] Assessments - Encounter Diagnoses No Data Provided [...] docume nt. The data comes from all [place] facilities. Date Advance Directives Provider Source February 17, 2013 ADVANCE DIRECTIVE DISCUSSION BRUCE SUMMERS [facility] Radiology Reports: +/- 30 days of the encounter No Data Provided for This Section Pathology Reports: +/- 30 days of the encounter No Data Provided for This Section Encounter Notes: All associated encounter notes This section contains the clinical notes associated to the Encounter. Date/Time Encounter Note(s) Provider Source Apr 27, 2021 11:43 AM ADMINISTRATIVE NOTE: LOCAL TITLE: INFORMATION NOTE STANDARD TITLE: ADMINISTRATIVE NOTE DATE OF NOTE: APR 27, 2021@11:43 ENTRY DATE: APR 27, 2021@11:43:16 AUTHOR: VINAYAK HERNANDEZ EXP COSIGNER: URGENCY: STATUS: COMPLETED Received ED discharge notes from [place], [place] date of: 02/25/2021, Admit Reason: COPD exacerbation, hypoxia, IPF-Forwarded to MD for review, placed in Community Care Records folder in [facility], and faxed to [facility] . /stephanie/ VINAYAK HERNANDEZ RN Signed: 04/27/2021 11:45 Receipt Acknowledged By: * AWAITING SIGNATURE * JEANMARIE MONTEIRO * AWAITING SIGNATURE * RADHA NAYLOR [facility]
--- NOTE | 2021-05-22 23:23 | ED Cough/URI ---
General Chief Complaint: Respiratory Problems Stated Complaint: TROUBLE BREATHING/FEVER Nursing Triage Note: Pt complaining of shortness of breath that started last night and worsened over the day today. Pt has oxygen at home that he wears prn. Pt thinks he had a fever during the night last night but hasn't checked his temp at home. Source: patient Exam Limitations: no limitations History of Present Illness Date Seen by Provider: May 22, 2021 Time Seen by Provider: 21:30 Initial Comments Patient is a 71-year-old male with chronic pulmonary disease requiring sup plemental oxygen at night presents with 99.8 temperature, increased cough with shortness of breath. No chest pain chest tightness, nausea vomiting or sweats. No abdominal pain. No dizziness or lightheadedness. No other acute symptoms or complaints. Patient recently moved from [place] of [place]. Has not yet established with a local primary care doctor. No history of CAD, CHF, valvular heart disease. No leg pain or swelling. Timing/Duration: just prior to arrival Severity/Quality: productive cough Prior Episodes/Possible Cause: other Modifying Factors: Improves With Other Associated Symptoms: cough, fever/chills, shortness of breath, other Allergies and Home Medications Patient Home Medication List Home Medication List Reviewed: Yes Review of Systems Review of Systems Constitutional: no symptoms reported EENTM: no symptoms reported Respiratory: no symptoms reported Cardiovascular: no symptoms reported Gastrointestinal: no symptoms reported Genitourinary: no symptoms reported Musculoskeletal: no symptoms reported Skin: no symptoms reported Psychiatric/Neurological: No Symptoms Reported Hematologic/Lymphatic: No Symptoms Reported Immunological/Allergic: no symptoms reported All Other Systems Reviewed Negative Unless Noted: Yes Past Kmogtfu-Lmuwbl-Bthrwk Hx Patient Social History Tobacco Use?: Yes Physical Exam Vital Signs - First Documented 05/22/21 22:53 Temp 37.3 Pulse 105 Resp 20 B/P (MAP) 154/79 (104) Pulse Ox 93 O2 Delivery Room Air Capillary Refill : Less Than 3 Seconds Height: '" Weight: lbs. oz. kg; BMI Method: General Appearance: WD/WN, no apparent distress Eyes: Bilateral Eye Normal Inspection, Bilateral Eye PERRL, Bilateral Eye EOMI HEENT: PERRL/EOMI, normal ENT inspection, pharynx normal Neck: non-tender, full range of motion, supple Respiratory: rhonchi, wheezing, other Cardiovascular: normal peripheral pulses, regular rate, rhythm, other Gastrointestinal: non tender, soft Extremities: normal range of motion, non-tender Neurologic/Psychiatric: no motor/sensory deficits, alert, oriented x 3 Skin: normal color Focused Exam Sepsis Stage: Ruled Out Progress/Results/Core Measures Suspected Sepsis SIRS Temperature: Pulse: 105 Respiratory Rate: 20 Laboratory Tests 05/22/21 23:35: White Blood Count 10.4 Blood Pressure 154 /79 Mean: 104 Laboratory Tests 05/22/21 23:35: Creatinine 0.89, Platelet Count 191, Total Bilirubin 0.4 Results/Orders Lab Results Laboratory Tests Test 05/22/21 23:35 05/22/21 23:55 Range/Units White Blood Count 10.4 4.3-11.0 10^3/uL Red Blood Count 5.77 4.35-5.85 10^6/uL Hemoglobin 17.1 13.3-17.7 G/DL Hematocrit 49 40-54 % Mean Corpuscular Volume 86 80-99 FL Mean Corpuscular Hemoglobin 30 25-34 PG Mean Corpuscular Hemoglobin Concent 35 32-36 G/DL Red Cell Distribution Width 13.5 10.0-14.5 % Platelet Count 191 130-400 10^3/uL Mean Platelet Volume 8.9 7.4-10.4 FL Immature Granulocyte % (Auto) 0 % Neutrophils (%) (Auto) 65 42-75 % Lymphocytes (%) (Auto) 19 12-44 % Monocytes (%) (Auto) 14 H 0-12 % Eosinophils (%) (Auto) 1 0-10 % Basophils (%) (Auto) 0 0-10 % Neutrophils # (Auto) 6.8 1.8-7.8 X 10^3 Lymphocytes # (Auto) 2.0 1.0-4.0 X 10^3 Monocytes # (Auto) 1.5 H 0.0-1.0 X 10^3 Eosinophils # (Auto) 0.1 0.0-0.3 10^3/uL Basophils # (Auto) 0.0 0.0-0.1 10^3/uL Immature Granulocyte # (Auto) 0.0 0.0-0.1 10^3/uL Sodium Level 134 L 135-145 MMOL/L Potassium Level 4.3 3.6-5.0 MMOL/L Chloride Level 99 98-107 MMOL/L Carbon Dioxide Level 25 21-32 MMOL/L Anion Gap 10 5-14 MMOL/L Blood Urea Nitrogen 10 7-18 MG/DL Creatinine 0.89 0.60-1.30 MG/DL Estimat Glomerular Filtration Rate 84 BUN/Creatinine Ratio 11 Glucose Level 121 H 70-105 MG/DL Calcium Level 9.2 8.5-10.1 MG/DL Corrected Calcium 9.3 8.5-10.1 MG/DL Total Bilirubin 0.4 0.1-1.0 MG/DL Aspartate Amino Transf (AST/SGOT) 27 5-34 U/L Alanine Aminotransferase (ALT/SGPT) 20 0-55 U/L Alkaline Phosphatase 127 40-136 U/L Troponin I < 0.30 <0.30 NG/ML Pro-B-Type Natriuretic Peptide 69.2 <75.0 PG/ML Total Protein 8.1 6.4-8.2 GM/DL Albumin 3.9 3.2-4.5 GM/DL My Orders Orders - MARY CHATTERJEE DO Cbc With Automated Diff (05/22/21 23:19) Comprehensive Metabolic Panel (05/22/21 23:19) Chest 1 View Ap/Pa Only (05/22/21 23:19) Troponin I Fs (05/22/21 23:19) Probnp Fs (05/22/21 23:19) Ed Iv/Invasive Line Start (05/22/21 23:35) Coronavirus Sars-Cov-2 So 2018 (05/22/21 23:48) Covid 19 Inhouse Test (05/22/21 23:55) Vital Signs/I&O 05/22/21 22:53 Temp 37.3 Pulse 105 Resp 20 B/P (MAP) 154/79 (104) Pulse Ox 93 O2 Delivery Room Air Capillary Refill : Less Than 3 Seconds Blood Pressure Mean: 104 Departure Communication (Admissions) Chest x-ray: Bilateral patchy infiltrates. Patient with bilateral patchy infiltrates with concerns for possible Covid versus atypical pneumonia. No respiratory compromise. We will continue supportive care with PCP follow-up. Return precautions reviewed patient verbalizes understanding agreement discharge instructions prior to departure. Impression Primary Impression: Atypical pneumonia Disposition: 01 HOME, SELF-CARE Condition: Stable Departure-Patient Inst. Decision time for Depature: 00:38 Referrals: NO,LOCAL PHYSICIAN (PCP) Primary Care Physician Patient Instructions: COVID-19 (DC), Community-Acquired Pneumonia in Adults Add. Discharge Instructions: You were evaluated emergency in the department for shortness of breath fever. Your symptoms are consistent with Covid and/or pneumonia. Please take newly prescribed medications as directed f and continue self quarantine pending Covid results. Please contact local PCP and establish follow-up appointment in the next week. Return to the ED if new or worsening symptoms. All discharge instructions reviewed with patient and/or family. Voiced understanding. Scripts Azithromycin (Zithromax) 250 Mg Tablet 250 MG PO UD, #6 TAB TAKE 2 TABLETS TODAY, THEN TAKE 1 TABLET DAILY FOR 4 MORE DAYS Prov: MARY CHATTERJEE DO 05/23/21 Albuterol Sulfate (Proventil Hfa) 6.7 Gm Hfa.aer.ad 2 PUFF INH Q6H for SHORTNESS OF BREATH, #1 EACH Prov: MARY CHATTERJEE DO 05/23/21 Prednisone (Prednisone) 20 Mg Tab 40 MG PO DAILY, #6 TAB 0 Refills Prov: MARY CHATTERJEE DO 05/23/21 MARY CHATTERJEE DO May 22, 2021 23:23
[2021-05-22 23:39] LABS: HEMATOCRIT 49 % (40-54); HEMOGLOBIN 17.1 G/DL (13.3-17.7); MEAN CORPUSCULAR HEMOGLOBIN 30 PG (25-34); MEAN CORPUSCULAR HGB CONC 35 G/DL (32-36); MEAN CORPUSCULAR VOLUME 86 FL (80-99); WHITE BLOOD COUNT 10.4 10^3/uL (4.3-11.0)
[2021-05-22 23:40] LABS: BASOPHILS % (AUTO) 0 % (0-10); EOSINOPHILS # (AUTO) 0.1 10^3/uL (0.0-0.3); EOSINOPHILS % (AUTO) 1 % (0-10); LYMPHOCYTES % (AUTO) 19 % (12-44); MEAN PLATELET VOLUME 8.9 FL (7.4-10.4); MONOCYTES # (AUTO) 1.5 X 10^3 (0.0-1.0); MONOCYTES % (AUTO) 14 % (0-12); NEUTROPHILS # (AUTO) 6.8 X 10^3 (1.8-7.8); NEUTROPHILS % (AUTO) 65 % (42-75); PLATELET COUNT 191 10^3/uL (130-400)
--- NOTE | 2021-05-22 23:51 | Diagnostic Imaging Report ---
INDICATION: Fever and shortness of breath Portable chest 11:29 PM There are patchy alveolar nodular infiltrates scattered throughout both lungs. There is no appreciable effusion or pneumothorax. IMPRESSION: Patchy alveolar infiltrates suspicious for pneumonia. Dictated by: Dictated on workstation # [id number]
[2021-05-23] LABS: ALANINE AMINOTRANSFERASE 20 U/L (0-55); ALBUMIN 3.9 GM/DL (3.2-4.5); ALKALINE PHOSPHATASE 127 U/L (40-136); BILIRUBIN,TOTAL 0.4 MG/DL (0.1-1.0); BUN/CREATININE RATIO 11; CALCIUM 9.2 MG/DL (8.5-10.1); CARBON DIOXIDE 25 MMOL/L (21-32); CHLORIDE 99 MMOL/L (98-107); CREATININE SERUM 0.89 MG/DL (0.60-1.30); GFR ESTIMATED 84; GLUCOSE 121 MG/DL (70-105); POTASSIUM 4.3 MMOL/L (3.6-5.0); SODIUM 134 MMOL/L (135-145); TOTAL PROTEIN 8.1 GM/DL (6.4-8.2)
[2021-05-23] MEDS ORDERED: PRD20T PO (00:40)
[2021-05-23] MEDS ORDERED: RT-ALBUINH INH (00:41)
[2021-05-23] MEDS ORDERED: AZIT250T PO (00:41)
[2021-05-23] MEDS ORDERED: DOXYCYCLINE 100 MG (VIBRAMYCIN) TABLET PO SCH (01:00)
[2021-05-23] MEDS ORDERED: predniSONE 20 MG TAB PO SCH ×2 (01:15→07:00)
[2021-05-23 01:18] VITALS: BP 137/84
== END 2021-05-23 01:18 | disposition home or self-care (01) ==
LOC: ER FS 22:51
DX: J18.9 Pneumonia, unspecified organism (principal); J44.9 Chronic obstructive pulmonary disease, unspecified; Z99.81 Dependence on supplemental oxygen; Z20.822 Contact with and (suspected) exposure to COVID-19
CPT/HCPCS: 36415; 71045; 80053; 83880; 84484; 85025; 87636

== ENCOUNTER 2021-09-30 11:15 | Inpatient (IN) | payer MEDICARE, OTHER ==
[~2021-09-30] VITALS: Ht 172.7 cm; Wt 94.5 kg
[~2021-09-30 11:15] MED LIST: AZIT250T PO; PRD20T PO; RT-ALBUINH INH
--- OUTSIDE RECORDS SUMMARY | 2021-09-30 11:23 | XMS REPORT | Encounter Summary ---
Author Author Department of [facility] KAVEH hudson Organization Department of [facility] Aff rs Address Unknown Phone Unavailable Care Team Providers Care Vice President Of Recruiting Name Role Phone RADHA NAYLOR PCP Unavailable [...] PART A Oct 08, 2005 PART A [id number] [phone] KAVEH NGUYEN PATIENT MEDICARE (WNR) MEDICARE (M) PART B Oct 08, 2005 PART B [id number] [phone] KAVEH NGUYEN PATIENT MEDICARE (WNR) MEDICARE (M) PART A Oct 08, 2005 PART A [id number] KAVEH NGUYEN PATIENT MEDICARE (WNR) MEDICARE (M) PART B Oct 08, 2005 PART B [id number] KAVEH NGUYEN PATIENT MEDICARE (WNR) MEDICARE (M) PART A Oct 08, 2005 PART A [id number] KAVEH NGUYEN PATIENT MEDICARE (WNR) MEDICARE (M) PART B Oct 08, 2005 PART B [id number] KAVEH NGUYEN PATIENT Selected Encounter This section includes the information on record at [place] for the Encounter. Date/Time Encounter Type Encounter [...] and tobacco- related health factors from the [place] facility where the Encounter took place. Current Smoking Status This section includes the most current smoking, or tobacco -related health factor, from the [place] facility where the Encounter took place. Date/Time Current Smoking Status Comment Facility Apr 01, 2014 11:00 AM NEVER USED TOBACCO or not in last 7yrs [facility] Tobacco Use History This section includes a history of the smoking, or tobacco -related health factors, that were collected on or before the date of the Encoun ter. The data comes from the [place] facility where the Encounter took place. Date/Time Smoking Status/Tobacco Use Comment [facility] Apr 01, 2014 11:00 AM V16 TOBACCO CESSATION > 7 YR [facility] [place] 01, 2014 11:00 AM V16 TOBACCO USE SCREEN [facility] February 17, 2013 11:00 AM NEVER USED TOBACCO or not in last 7yrs [facility] February 17, 2013 11:00 AM V16 TOBACCO CESSATION > 7 YR [facility] [place] 17, 2013 11:00 AM V16 TOBACCO USE SCREEN [facility] Jul 06, 2011 09:30 AM NEVER USED TOBACCO or not in last 7yrs [facility] Jul 06, 2011 09:30 AM V16 TOBACCO CESSATION > 7 YR [facility] Jul 06, 2011 09:30 AM V16 TOBACCO USE SCREEN [facility] Aug 09, 2007 03:00 PM NEVER USED TOBACCO or not in last 7yrs [facility] Nov 22, 2004 10:00 AM TOBACCO CESSATION: <1 YEAR QUIT IN 1985 [facility] Advance Directives: All historical and current Section [...] docume nt. The data comes from all [place] facilities. Date Advance Directives Provider Source February 17, 2013 ADVANCE DIRECTIVE DISCUSSION BRUCE SUMMERS NDJaylen [facility] Radiology Reports: +/- 30 days of the [...] requesting a return call. /stephanie/ KRISHNA RUCKER AUTOMOTIVE PARTS COUNTER ASSISTANT Signed: 11/24/2020 14:11 KRISHNA RUCKER [facility]
--- OUTSIDE RECORDS SUMMARY | 2021-09-30 11:23 | XMS REPORT | Encounter Summary ---
Author Author Department of [facility] KAVEH hudson Organization Department of [facility] Aff rs Address Unknown Phone Unavailable Care Team Providers Care Environmental Sciences Professor Name Role Phone RADHA NAYLOR PCP Unavailable [...] PART A Oct 08, 2005 PART A [id number] [phone] KAVEH NGUYEN PATIENT MEDICARE (WNR) MEDICARE (M) PART B Oct 08, 2005 PART B [id number] [phone] KAVEH NGUYEN PATIENT MEDICARE (WNR) MEDICARE (M) PART A Oct 08, 2005 PART A [id number] KAVEH NGUYEN PATIENT MEDICARE (WNR) MEDICARE (M) PART B Oct 08, 2005 PART B [id number] KAVEH NGUYEN PATIENT MEDICARE (WNR) MEDICARE (M) PART A Oct 08, 2005 PART A [id number] [phone] KAVEH NGUYEN PATIENT MEDICARE (WNR) MEDICARE (M) PART B Oct 08, 2005 PART B [id number] [phone] KAVEH NGUYEN PATIENT Selected Encounter This section includes the information on record at [place] for the Encounter. Date/Time Encounter Type Encounter [...] and tobacco- related health factors from the [place] facility where the Encounter took place. Current Smoking Status This section includes the most current smoking, or tobacco -related health factor, from the [place] facility where the Encounter took place. Date/Time Current Smoking Status Comment Facility Apr 01, 2014 11:00 AM NEVER USED TOBACCO or not in last 7yrs [facility] [place] Use History This section includes a history of the smoking, or tobacco -related health factors, that were collected on or before the date of the Encoun ter. The data comes from the [place] facility where the Encounter took place. Date/Time Smoking Status/Tobacco Use Comment [facility] Apr 01, 2014 11:00 AM V16 TOBACCO CESSATION > 7 YR [facility] Apr 01, 2014 11:00 AM V16 TOBACCO USE SCREEN [facility] February 17, 2013 11:00 AM NEVER USED TOBACCO or not in last 7yrs [facility] February 17, 2013 11:00 AM V16 TOBACCO CESSATION > 7 YR [facility] February 17, 2013 11:00 AM V16 TOBACCO USE SCREEN [facility] Jul 06, 2011 09:30 AM NEVER USED TOBACCO or not in last 7yrs [facility] Jul 06, 2011 09:30 AM V16 TOBACCO CESSATION > 7 YR [facility] Jul 06, 2011 09:30 AM V16 TOBACCO USE SCREEN [facility] Aug 09, 2007 03:00 PM NEVER USED TOBACCO or not in last 7yrs [facility] Nov 22, 2004 10:00 AM TOBACCO CESSATION: <1 YEAR QUIT IN 1985 [facility] Advance Directives: All historical and current Section [...] docume nt. The data comes from all [place] facilities. Date Advance Directives Provider Source February 17, 2013 ADVANCE DIRECTIVE DISCUSSION BRUCE SUMMERS [facility] Radiology Reports: +/- 30 days of [...] may be impacted by changes in the [place] and/or Family Caregiver(s)' circumstances, changes in needs or abilities, or VA may seek to discharge a participant due to failure to meet expectations or otherwise adhere to the intent of the program. Date of CEAT Review: Nov Full Name: KAVEH NGUYEN Iliana SSN: [id number] Date of : February Address: [address], [facility] Phone number: Reasons for CEAT review: Initial [...] personal care services means that the eligible [place] requires in-person personal care services from another person, and without such personal care services, alternative in-person caregiving arrangements (including respite care or assistance of an alternative caregiver) would be required to support the eligible [place]'s safety. *Personal Care Services means care or assistance of another person necessary in order to support the eligible 's health and well-being, and perform personal functions required in everyday living ensuring the eligible [place] remains safe from hazards or dangers incident to his or her daily environment. No 4) It is in the best interest of the individual to participate in the program. *In the best interest means a clinical determination that participation in PCA is likely to be beneficial to the [place] or services mgr. Such determination will include consideration, by a clinician, of whether participation in the program significantly enhances the 's or services mgr's ability to live safely in a home setting, supports the [place]'s or services mgr's potential progress in rehabilitation, if such potential exists, increases the [place]'s or services mgr's potential independence, if such potential exists, and creates an environment that supports the health and well-being of the or services mgr. No 5) Personal care services that would be provided by the Family Caregiver will not be simultaneously and regularly provided by or through another individual or entity. Yes 6)The individual receives care at home or will do so if [place] designates a Family Caregiver. Yes 7) The individual receives ongoing care from a primary care team or will do so if [place] designates a Family Caregiver. *Primary care team means one or more expert medical writer who care for a patient based on the clinical needs of the patient. Primary care teams must include a VA primary care provider who is a physician, advanced practice nurse, or a physician fws faculty assistant. Yes CAREGIVER REQUIREMENTS Primary Family Caregiver [...] VA of abuse or neglect of the [place] by the Primary Family Caregiver applicant? No PROGRAM PARTICIPATION REQUIREMENTS 1)The application process is completed within 90 days. No Application delay is solely due to the VA. 2) The [place] or services mgr resides in a State, defined as each of the several States, Territories, and possessions of the [place], the district of [place], and the [facility]. Yes DETERMINATION SECTION Denied - The and Family Caregiver applicant have been found not eligible for the Program of Comprehensive Assistance for Family Caregivers. - or services mgr does not require personal care services for a minimum of 6 continuous months based on an inability to perform an ADL and/or a need for supervision, protection or instruction. - Participation in the Program of Comprehensive Assistance for Family Caregivers was deemed not in the [place]'s best interest Centralized Eligibility and Appeals Team summary of determination: The VISN 19 CEAT reviewed all available records and discussed the application on the date indicated above. There was insufficient objective clinical documentation supporting a need for personal care services meeting the statutory requirements (38 U.S.C. 1720G(a)(3)(C)(ii), (iv)). See 85 FR 49502 (December 12, 2019) [[employer] [place] / Vol. 85, No. 148 / May 07, 2020, p. 25034]. The [place] should continue to follow-up with their primary care team and/or other provider(s). /stephanie/ Pastora Mccloud MD MPH Board Certified Physical Med & Rehab Signed: 11/18/2020 13:42 Receipt Acknowledged By: * AWAITING SIGNATURE * BENJAMIN RAMSAY * AWAITING SIGNATURE * SIRENA DEL ROSARIO * AWAITING SIGNATURE * KRISHNA RUCKER ANGELICA C [facility]
--- OUTSIDE RECORDS SUMMARY | 2021-09-30 11:23 | XMS REPORT | Encounter Summary ---
Author Author Department of [facility] KAVEH hudson Organization Department of [facility] rs Address Unknown Phone Unavailable Care Team Providers Care Gas Derrick Operator Name Role Phone RADHA NAYLOR PCP Unavailable [...] PART A Oct 08, 2005 PART A [id number] [phone] KAVEH NGUYEN PATIENT MEDICARE (WNR) MEDICARE (M) PART B Oct 08, 2005 PART B [id number] [phone] KAVEH NGUYEN PATIENT MEDICARE (WNR) MEDICARE (M) PART A Oct 08, 2005 PART A [id number] KAVEH NGUYEN PATIENT MEDICARE (WNR) MEDICARE (M) PART B Oct 08, 2005 PART B [id number] KAVEH NGUYEN PATIENT MEDICARE (WNR) MEDICARE (M) PART A Oct 08, 2005 PART A [id number] KAVEH NGUYEN PATIENT MEDICARE (WNR) MEDICARE (M) PART B Oct 08, 2005 PART B [id number] 84A [id number] KAVEH NGUYEN PATIENT Selected Encounter This section includes the information on record at [place] for the Encounter. Date/Time Encounter Type Encounter Description Reason Provider Source Oct 07, 2020 05:45 PM [facility] RN EA 15 MIN CAREGIVER SUPP ORT PROGRAM ICD-10-CM Z78.9 Other specified health status with Provider Comments: Other specified Health Status JORDANMARCUS Hussein NICKRaymundo Encounter Template Text not used by [place] Assessments - Encounter Diagnoses This section includes the primary and secondary diag noses documented for the Encounter. Date/Time Primary/Secondary Diagnosis Diagnosis Name Provider Source Oct 12, 2020 12:12 PM PRIMARY Other specified health status MARCUS RICHARDSON [facility] Plan of Treatment: Future Appointments (+ 6 [...] Health or Hospice Setting, each 15 minutes [facility] RN JOSE F 15 MIN MARCUS GRAHAM [facility] Surgical Notes There are no notes associated [...] and tobacco- related health factors from the [place] facility where the Encounter took place. Current Smoking Status This section includes the most current smoking, or tobacco -related health factor, from the [place] facility where the Encounter took place. Date/Time [...] Encoun ter. The data comes from the [place] facility where the Encounter took place. Date/Time Smoking Status/Tobacco Use Comment [facility] Apr 01, 2014 11:00 AM V16 TOBACCO CESSATION > 7 YR [facility] Apr 01, 2014 11:00 AM V16 TOBACCO USE SCREEN [facility] February 17, 2013 11:00 AM NEVER USED TOBACCO or not in last 7yrs [facility] February 17, 2013 11:00 AM V16 TOBACCO CESSATION > 7 YR [facility] February 17, 2013 11:00 AM V16 TOBACCO USE SCREEN [facility] Jul 06, 2011 09:30 AM NEVER USED TOBACCO or not in last 7yrs [facility] Jul 06, 2011 09:30 AM V16 TOBACCO CESSATION > 7 YR [facility] [...] of a patient's completed or amen ded [place] Advance and Rescinded Directives. The entries below indicate that a direc tive exists for the patient, but an actual copy is not included with this docume nt. The data comes from all [place] facilities. Date Advance Directives Provider Source February 17, 2013 ADVANCE DIRECTIVE DISCUSSION BRUCE SUMMERS [facility] Radiology Reports: +/- 30 days of the [...] This Functional Assessment Instrument captures the or patient services rep's functional needs, as it relates to the requirements for the [facility]. This assessment instrument should only be used with Veterans or service members who have applied to the [facility] and a consult has been placed for this assessment by a Caregiver Balance Recesser. The author completing this assessment must be [...] or on the side of the bed. Chair/fro-xg-[id number] transfer: Independent Defined as: The ability to [...] to bend/stoop from a standing position to pharmacy picking technician a small object, such as a spoon, [...] medication management? Needs medication set-up Additional Comments: [place] does not take any prescription medications. He [...] this person at risk of self-neglect? No [place] has the following risk factors: Not applicable [...] Additional Comments: VFAI completed today with via [facility] r/t COVID restrictions. and [facility] have had difficulty with scheduling this visit r/t unable to connect to [facility] and [facility] being out of town caring for family member. Today this CSRN contacted [place] to work with him on what his plan was to complete this VFAI in relationship to time sensativity of application. The verbalized his 44 year old Nephew lived with him and letha salazar could assist. Nephew was able to install email on 's phone and connect via [facility]. CSRN offered to complete visit at this [...] distance (out of state). He utilizes the [facility] for health, dental and vision care. He takes no routine medications, only OTC supplements. He reports he drinks a herbal type tea made by [facility] to prevent him from being on dialysis. He is not on any special diet. [place] offered the opportunity to elaborate on the role of his significant other as his CGER. He reports he would probably be if it were not for her. 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 He attributes this to her help. No other needs ID by . Assessment completed Assessment time: /stephanie/ Marcus Graham MSN,auto air conditioning mechanic Nurse Signed: 10/12/2020 12:09 Receipt Acknowledged By: * AWAITING SIGNATURE * KRISHNA RUCKER SHELLEY [facility]
--- OUTSIDE RECORDS SUMMARY | 2021-09-30 11:24 | XMS REPORT | Encounter Summary ---
Author Author Department of [facility] KAVEH hudson Organization Department of [facility] rs Address Unknown Phone Unavailable Care Team Providers Care County Extension Agent Name Role Phone RADHA NAYLOR PCP Unavailable [...] PART A Oct 08, 2005 PART A [id number] [phone] KAVEH NGUYEN PATIENT MEDICARE (WNR) MEDICARE (M) PART B Oct 08, 2005 PART B [id number] [phone] KAVEH NGUYEN PATIENT MEDICARE (WNR) MEDICARE (M) PART A Oct 08, 2005 PART A [id number] KAVEH NGUYEN PATIENT MEDICARE (WNR) MEDICARE (M) PART B Oct 08, 2005 PART B [id number] KAVEH NGUYEN PATIENT MEDICARE (WNR) MEDICARE (M) PART A Oct 08, 2005 PART A [id number] KAVEH NGUYEN PATIENT MEDICARE (WNR) MEDICARE (M) PART B Oct 08, 2005 PART B [id number] [id number] KAVEH NGUYEN PATIENT Selected Encounter This section includes the information on record at [place] for the Encounter. Date/Time Encounter Type Encounter [...] of a patient's completed or amen ded [place] Advance and Rescinded Directives. The entries below indicate that a direc tive exists for the patient, but an actual copy is not included with this docume nt. The data comes from all [place] facilities. Date Advance Directives Provider Source February 17, 2013 ADVANCE DIRECTIVE DISCUSSION BRUCE SUMMERS [facility] Radiology Reports: +/- 30 days [...] Intake Date Presenting to the Facility: February [facility] Hospital Name: Hospital: [facility] Address: City: [place] State: Zip Code: Phone : Chief complaint: Shortness of Breath Primary Diagnosis: Patient Admitted? Yes Route of Admission: ER Date/Time of Admission: Admitting Diagnosis: Shortness of Breath Community Care Provider: Confirm Level of Care: Community Facility Point of Contact: Name: ADMISSIONS [id number] [facility] (849) 02/25/2021 02/25/2021 WENDY LINN [id number] 1950 [facility] [address] [facility] Yes Shortness of Breath Per sharepoint: Closed - Approved for 1703 Called [facility] and confirmed [place] is not currently inpatient PACT, to reduce [...] [facility] Name:[facility] [address] [place] [address] -awaiting at this time. /stephanie/ VINAYAK BLANTON RN Signed: 04/20/2021 16:54 [facility]
--- OUTSIDE RECORDS SUMMARY | 2021-09-30 11:24 | XMS REPORT | Encounter Summary ---
Author Author Department of [facility] KAVEH hudson Organization Department of [facility] rs Address Unknown Phone Unavailable Care Team Providers Care Dean Of Student Services Name Role Phone RADHA NAYLOR PCP Unavailable [...] PART A Oct 08, 2005 PART A [id number] [phone] KAVEH NGUYEN PATIENT MEDICARE (WNR) MEDICARE (M) PART B Oct 08, 2005 PART B [id number] [phone] KAVEH NGUYEN PATIENT MEDICARE (WNR) MEDICARE (M) PART A Oct 08, 2005 PART A [id number] KAVEH NGUYEN PATIENT MEDICARE (WNR) MEDICARE (M) PART B Oct 08, 2005 PART B [id number] KAVEH NGUYEN PATIENT MEDICARE (WNR) MEDICARE (M) PART A Oct 08, 2005 PART A [id number] [id number] KAVEH NGUYEN PATIENT MEDICARE (WNR) MEDICARE (M) PART B Oct 08, 2005 PART B [id number] [phone] KAVEH NGUYEN PATIENT Selected Encounter This section includes the information on record at [place] for the Encounter. Date/Time Encounter Type Encounter Description Reason Provider Source May 16, 2021 11:41 AM Outpatient Encounter ADMIN PAT ACTIVTIES (MICA SILVA) IHE Encounter Template Text not used by [place] Assessments - Encounter Diagnoses No Data Provided [...] 17, 2013 ADVANCE DIRECTIVE DISCUSSION BRUCE SUMMERS [facility] Radiology Reports: +/- 30 days of [...] VINAYAK HERNANDEZ EXP COSIGNER: URGENCY: STATUS: COMPLETED [place], [place] [address] MAY 16, 2021 KAVEH NGUYEN [address] [place] [id number] Dear , We have attempted to contact you regarding your care at the [facility]. We have been unsuccessful [...] NOT wish to receive care at the [facility] or you no longer wish to have your consult scheduled,please call the above number to let us know so that we will not keep trying to contact you. Thank you for your service to our Nation. It is our mission to honor [place] Veterans by providing them with exceptional, timely, [place] centered care. Sincerely, [facility] [address] [place], [place] [address] If you have already spoken with us regarding this scheduling, please disregard this letter. VINAYAK HERNANDEZ ON LICENSE OF [facility]
--- OUTSIDE RECORDS SUMMARY | 2021-09-30 11:24 | XMS REPORT | Encounter Summary ---
Author Author Department of [facility] KAVEH hudson Organization Department of [facility] rs Address Unknown Phone Unavailable Care Team Providers Care Curve Saw Operator Name Role Phone RADHA NAYLOR PCP [...] PART A Oct 08, 2005 PART A [id number] [id number] [phone] KAVEH NGUYEN PATIENT MEDICARE (WNR) MEDICARE (M) PART B Oct 08, 2005 PART B [id number] 84A [phone] KAVEH NGUYEN PATIENT MEDICARE (WNR) MEDICARE (M) PART A Oct 08, 2005 PART A [id number] KAVEH NGUYEN PATIENT MEDICARE (WNR) MEDICARE (M) PART B Oct 08, 2005 PART B [id number] KAVEH NGUYEN PATIENT MEDICARE (WNR) MEDICARE (M) PART A Oct 08, 2005 PART A [id number] [id number] [id number] KAVEH NGUYEN PATIENT MEDICARE (WNR) MEDICARE (M) PART B Oct 08, 2005 PART B [id number] 84A [phone] KAVEH NGUYEN PATIENT Selected Encounter This section [...] 2013 ADVANCE DIRECTIVE DISCUSSION BRUCE SUMMERS [facility] Radiology Reports: +/- 30 days of [...] STATUS: COMPLETED Received ED discharge notes from [place], [place] date of: 02/25/2021, Admit Reason: COPD exacerbation, hypoxia, IPF-Forwarded to MD for review, placed in Community Care Records folder in [employer], and faxed to [facility] . /stephanie/ VINAYAK HERNANDEZ RN Signed: 04/27/2021 11:45 Receipt Acknowledged By: * AWAITING SIGNATURE * JEANMARIE MONTEIRO * AWAITING SIGNATURE * RADHA NAYLOR [facility]
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
--- OUTSIDE RECORDS SUMMARY | 2021-09-30 11:24 | XMS REPORT | Encounter Summary ---
Author Author Department of [facility] KAVEH hudson Organization Department of [facility] rs Address Unknown Phone Unavailable Care Team Providers Care Computer Hardware Designer Name Role Phone RADHA NAYLOR PCP Unavailable [...] PART A Oct 08, 2005 PART A [id number] 84A [phone] KAVEH NGUYEN PATIENT MEDICARE (WNR) MEDICARE (M) PART B Oct 08, 2005 PART B [id number] [phone] KAVEH NGUYEN PATIENT MEDICARE (WNR) MEDICARE (M) PART A Oct 08, 2005 PART A [id number] KAVEH NGUYEN PATIENT MEDICARE (WNR) MEDICARE (M) PART B Oct 08, 2005 PART B [id number] KAVEH NGUYEN PATIENT MEDICARE (WNR) MEDICARE (M) PART A Oct 08, 2005 PART A [id number] [phone] KAVEH NGUYEN PATIENT MEDICARE (WNR) MEDICARE (M) PART B Oct 08, 2005 PART B [id number] 84A [phone] KAVEH NGUYEN PATIENT Selected Encounter This section includes the information on record at [place] for the Encounter. Date/Time Encounter Type Encounter Description Reason Provider Source February 25, 2021 12:00 AM Outpatient Encounter ADMIN PAT ACTIVTIES (MICA SILVA) IHE Encounter Template Text not used by [place] Assessments - Encounter Diagnoses No Data Provided [...] 17, 2013 ADVANCE DIRECTIVE DISCUSSION BRUCE SUMMERS [facility] Radiology Reports: +/- 30 days [...] COMPLETED Vist[facility] - Scanned Document [facility].CTR. - ED / DISCHARGE / DIAGNOSTIC TESTS /es/ LAWSON CABRALES LAUNDRY AGENT (SUSY) Signed: 05/03/2021 06:41 LAWSON CABRALES [facility]
[2021-09-30] MEDS ORDERED: RT-ALBUTEROL/IPRATROPIUM 3 ML (DUONEB) VIAL INH ONE (11:30)
--- NOTE | 2021-09-30 11:42 | ED Cough/URI ---
General Chief Complaint: Respiratory Problems Stated Complaint: COUGH/FEVER/SOA/BODYACHES/SORE THROAT Source: patient Exam Limitations: no limitations History of Present Illness Date Seen by Provider: Sep 30, 2021 Time Seen by Provider: 11:41 Initial Comments To ER with fever cough headache shortness of breath body aches. 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 Lives in [facility] in [place]. Takes no medications but takes a lot of herbs he states. He had chills last night. Has had both Covid vaccines. Timing/Duration: constant Severity/Quality: moderate Associated Symptoms: cough, shortness of breath, wheezing Allergies and Home Medications Allergies Coded Allergies: No Known Drug Allergies (Unverified , 05/23/21) Patient Home Medication List Home Medication List Reviewed: Yes Albuterol Sulfate (Proventil Hfa) 6.7 Gm Hfa.aer.ad, 2 PUFF INH Q6H Prescribed by: MARY CHATTERJEE on 05/23/2140 Azithromycin (Zithromax) 250 Mg Tablet, 250 MG PO UD Prescribed by: MARY CHATTERJEE on 05/23/2140 Prednisone (Prednisone) 20 Mg Tab, 40 MG PO DAILY Prescribed by: MARY CHATTERJEE on 05/23/2139 Review of Systems Review of Systems Constitutional: see HPI EENTM: see HPI Respiratory: see HPI, cough, short of breath Cardiovascular: no symptoms reported Genitourinary: no symptoms reported Musculoskeletal: no symptoms reported Skin: no symptoms reported Psychiatric/Neurological: No Symptoms Reported Hematologic/Lymphatic: No Symptoms Reported Immunological/Allergic: no symptoms reported Physical Exam Capillary Refill : Height: '" Weight: lbs. oz. kg; BMI Method: General Appearance: WD/WN, mild distress, other (Oxygen saturation 89% on his baseline 2 L) Eyes: Bilateral Eye Normal Inspection, Bilateral Eye PERRL, Bilateral Eye EOMI HEENT: PERRL/EOMI, normal ENT inspection Respiratory: respiratory distress, accessory muscle use, wheezing Cardiovascular: regular rate, rhythm, no murmur Gastrointestinal: normal bowel sounds, non tender, soft Neurologic/Psychiatric: alert, normal mood/affect, oriented x 3 Skin: normal color, warm/dry Focused Exam Lactate Level 09/30/21 11:30: Lactic Acid Level 2.38*H Lactic Acid Level Laboratory Tests Test 09/30/21 11:30 Lactic Acid Level 2.38 MMOL/L (0.50-2.00) *H Progress/Results/Core Measures Suspected Sepsis SIRS Temperature: Pulse: Respiratory Rate: Laboratory Tests 09/30/21 11:30: White Blood Count 25.2H Blood Pressure / Mean: 09/30/21 11:30: Lactic Acid Level 2.38*H Laboratory Tests 09/30/21 11:30: Creatinine 1.15, INR Comment 1.2, Platelet Count 183, Total Bilirubin 1.8H Results/Orders Lab Results Laboratory Tests Test 09/30/21 11:30 09/30/21 11:35 Range/Units White Blood Count 25.2 H 4.3-11.0 10^3/uL Red Blood Count 6.04 H 4.30-5.52 10^6/uL Hemoglobin 17.6 13.3-17.7 g/dL Hematocrit 53 40-54 % Mean Corpuscular Volume 87 80-99 fL Mean Corpuscular Hemoglobin 29 25-34 pg Mean Corpuscular Hemoglobin Concent 34 32-36 g/dL Red Cell Distribution Width 13.6 10.0-14.5 % Platelet Count 183 130-400 10^3/uL Mean Platelet Volume 9.1 9.0-12.2 fL Immature Granulocyte % (Auto) 2 % Neutrophils (%) (Auto) 81 H 42-75 % Lymphocytes (%) (Auto) 7 L 12-44 % Monocytes (%) (Auto) 10 0-12 % Eosinophils (%) (Auto) 0 0-10 % Basophils (%) (Auto) 0 0-10 % Neutrophils # (Auto) 20.5 H 1.8-7.8 10^3/uL Lymphocytes # (Auto) 1.8 1.0-4.0 10^3/uL Monocytes # (Auto) 2.4 H 0.0-1.0 10^3/uL Eosinophils # (Auto) 0.1 0.0-0.3 10^3/uL Basophils # (Auto) 0.1 0.0-0.1 10^3/uL Immature Granulocyte # (Auto) 0.4 H 0.0-0.1 10^3/uL Neutrophils % (Manual) 64 % Lymphocytes % (Manual) 11 % Monocytes % (Manual) 7 % Band Neutrophils 18 % Blood Morphology Comment NORMAL Prothrombin Time 15.6 H 12.2-14.7 SEC INR Comment 1.2 0.8-1.4 Activated Partial Thromboplast Time 39 H 24-35 SEC D-Dimer 0.95 H 0.00-0.49 UG/ML Sodium Level 130 L 135-145 MMOL/L Potassium Level 4.1 3.6-5.0 MMOL/L Chloride Level 99 98-107 MMOL/L Carbon Dioxide Level 19 L 21-32 MMOL/L Anion Gap 12 5-14 MMOL/L Blood Urea Nitrogen 17 7-18 MG/DL Creatinine 1.15 0.60-1.30 MG/DL Estimat Glomerular Filtration Rate 63 BUN/Creatinine Ratio 15 Glucose Level 145 H 70-105 MG/DL Lactic Acid Level 2.38 *H 0.50-2.00 MMOL/L Calcium Level 9.1 8.5-10.1 MG/DL Corrected Calcium 9.3 8.5-10.1 MG/DL Total Bilirubin 1.8 H 0.1-1.0 MG/DL Aspartate Amino Transf (AST/SGOT) 36 H 5-34 U/L Alanine Aminotransferase (ALT/SGPT) 43 0-55 U/L Alkaline Phosphatase 110 40-136 U/L Total Protein 8.2 6.4-8.2 GM/DL Albumin 3.8 3.2-4.5 GM/DL Procalcitonin 2.19 H <0.10 NG/ML Influenza Type A (RT-PCR) Not Detected Not Detecte Influenza Type B (RT-PCR) Not Detected Not Detecte SARS-CoV-2 RNA (RT-PCR) Not Detected Not Detecte Blood Gas Puncture Site LT RAD Blood Gas Patient Temperature 97 Arterial Blood pH 7.42 7.37-7.43 Arterial Blood Partial Pressure CO2 33 L 35-45 MMHG Arterial Blood Partial Pressure O2 85 79-93 MMHG Arterial Blood HCO3 21 L 23-27 MMOL/L Arterial Blood Total CO2 22.5 21.0-31.0 MMOL/L Arterial Blood Oxygen Saturation 98 94-100 % Arterial Blood Base Excess -2.6 L -2.5-2.5 MMOL/L Jesus Test YES-POS Blood Gas Ventilator Setting NO Blood Gas Inspired Oxygen 3L My Orders Orders - KAITY MCGUIRE APRN Covid 19 Inhouse Test (09/30/21 11:17) Influenza A And B By Pcr (09/30/21 11:17) Albuterol/Ipra Inhalation Soln (Duoneb I (09/30/21 11:30) Svn Small Volume Nebulizer (09/30/21 11:30) Cbc With Automated Diff (09/30/21 11:30) Comprehensive Metabolic Panel (09/30/21 11:30) Blood Culture (09/30/21 11:30) Sputum Culture (09/30/21 11:30) Urinalysis (09/30/21 11:30) Urine Culture (09/30/21 11:30) Protime With Inr (09/30/21 11:30) Partial Thromboplastin Time (09/30/21 11:30) Chest 1 View, Ap/Pa Only (09/30/21 11:30) Ed Iv/Invasive Line Start (09/30/21 11:30) Ed Iv/Invasive Line Start (09/30/21 11:30) Vital Signs Adult Sepsis Patie Q15M (09/30/21 11:30) O2 (09/30/21 11:30) Remove Rings In Anticipation O (09/30/21 11:30) Lactic Acid Analyzer (09/30/21 11:30) Procalcitonin (Pct) (09/30/21 11:30) Arterial Blood Gas (09/30/21 11:33) Fibrin Degradation Products (09/30/21 11:39) Manual Differential (09/30/21 11:30) Ct Angio Chest W (09/30/21 12:45) Iohexol Injection (Omnipaque 350 Mg/Ml 1 (09/30/21 13:00) Received Contrast (Hold Metformin- Contr (09/30/21 13:00) Ns (Ivpb) (Sodium Chloride 0.9% Ivpb Bag (09/30/21 13:00) Methylprednisolone Sod Succ (Solu-Medrol (09/30/21 13:45) Cefepime Injection (Maxipime Injection) (09/30/21 13:45) Lactated Ringers (Lr 1000 Ml Iv Solution (09/30/21 13:45) Medications Given in ED Current Medications Medications Dose Ordered Sig/Aaron Route Start Time Stop Time Status Last Admin Dose Admin Albuterol/ Ipratropium 3 ml ONCE ONCE INH 09/30/21 11:30 09/30/21 11:32 DC 09/30/21 11:45 3 ML Iohexol 100 ml ONCE ONCE IV 09/30/21 13:00 09/30/21 13:01 DC 09/30/21 13:16 78 ML Sodium Chloride 100 ml ONCE ONCE IV 09/30/21 13:00 09/30/21 13:01 DC 09/30/21 13:16 80 ML Vital Signs/I&O Capillary Refill : Departure Communication (Admissions) NAME: KAVEH NGUYEN [facility] REC#: [id number] STATUS: REG ER : 1950 PHYSICIAN: KAITY MCGUIRE APRN ADMIT DATE: 09/30/21/ER Draft Date of Exam:09/30/21 CHEST 1 VIEW, AP/PA ONLY Indication: Cough, fever, body aches Comparison: 05/22/2021 Findings: Single view of the chest demonstrates worsening low lung volumes with probable small effusions and atelectasis. Moderate infiltrate is seen right greater than left. There is no pneumothorax. The heart is prominent. Osseous structures stable. Impression: 1. Low lung volumes possibly due to a pulmonary fibrosis. 2. Questionable small effusions. 3. Increasing infiltrates right greater than left. Dictated on workstation # [id number] Dict: 09/30/21 1319 Trans: 09/30/21 1322 [facility] [id number] Interpreted by: LEVY IRBY Electronically signed by: Impression Primary Impression: Pneumonia Additional Impression: Sepsis Disposition: ADMITTED INPATIENT Condition: Stable Admissions Decision to Admit Reason: Admit from ER (General) Decision to Admit/Date: Sep 30, 2021 Time/Decision to Admit Time: 13:33 Departure-Patient Inst. Referrals: NO,LOCAL PHYSICIAN (PCP/Family) Primary Care Physician KAITY MCGUIRE APRN Sep 30, 2021 11:42
[2021-09-30 11:50] LABS: ABG BASE EXCESS -2.6 MMOL/L (-2.5-2.5); ABG OXYGEN SATURATION 98 % (94-100); ABG PCO2 33 MMHG (35-45); ABG PH 7.42 (7.37-7.43); ABG PO2 85 MMHG (79-93); ABG TCO2 22.5 MMOL/L (21.0-31.0)
[2021-09-30 11:53] LABS: ALLENS TEST YES-POS; INSPIRED O2 3L; PATIENT TEMP 97; VENTILATOR NO
[2021-09-30 11:53] LABS: BASOPHILS # (AUTO) 0.1 10^3/uL (0.0-0.1); BASOPHILS % (AUTO) 0 % (0-10); EOSINOPHILS # (AUTO) 0.1 10^3/uL (0.0-0.3); EOSINOPHILS % (AUTO) 0 % (0-10); HEMATOCRIT 53 % (40-54); HEMOGLOBIN 17.6 g/dL (13.3-17.7); LYMPHOCYTES # (AUTO) 1.8 10^3/uL (1.0-4.0); LYMPHOCYTES % (AUTO) 7 % (12-44); MEAN CORPUSCULAR HEMOGLOBIN 29 pg (25-34); MEAN CORPUSCULAR HGB CONC 34 g/dL (32-36); MEAN CORPUSCULAR VOLUME 87 fL (80-99); MEAN PLATELET VOLUME 9.1 fL (9.0-12.2); MONOCYTES # (AUTO) 2.4 10^3/uL (0.0-1.0); MONOCYTES % (AUTO) 10 % (0-12); NEUTROPHILS # (AUTO) 20.5 10^3/uL (1.8-7.8); NEUTROPHILS % (AUTO) 81 % (42-75); PLATELET COUNT 183 10^3/uL (130-400); WHITE BLOOD COUNT 25.2 10^3/uL (4.3-11.0)
[2021-09-30 12:03] LABS: ALBUMIN 3.8 GM/DL (3.2-4.5); BAND NEUTROPHILS 18 %; LYMPHOCYTES % (MANUAL) 11 %; MONOCYTES % (MANUAL) 7 %; NEUTROPHILS % (MANUAL) 64 %; RBC MORPH NORMAL
[2021-09-30 12:04] LABS: POTASSIUM 4.1 MMOL/L (3.6-5.0)
[2021-09-30 12:05] LABS: CALCIUM 9.1 MG/DL (8.5-10.1)
[2021-09-30 12:06] LABS: TOTAL PROTEIN 8.2 GM/DL (6.4-8.2)
[2021-09-30 12:08] LABS: BILIRUBIN,TOTAL 1.8 MG/DL (0.1-1.0); FIBRIN DEGRADATION PRODUCTS 0.95 UG/ML (0.00-0.49); INR 1.2 (0.8-1.4); PROTHROMBIN TIME PATIENT 15.6 SEC (12.2-14.7)
[2021-09-30 12:10] LABS: CREATININE SERUM 1.15 MG/DL (0.60-1.30)
[2021-09-30] MEDS ORDERED: NS 100 ML (IVPB) BAG IV ONE (13:00)
[2021-09-30] MEDS ORDERED: IOHEXOL 350 MG/ML 100 ML (OMNIPAQUE 350) VIAL IV ONE (13:00)
[2021-09-30] MEDS ORDERED: HOLD METFORMIN - RECEIVED CONTRAST 20 ML VIAL IV SCH (13:00)
--- NOTE | 2021-09-30 13:23 | Diagnostic Imaging Report ---
Indication: Cough, fever, body aches Comparison: 05/22/2021 Findings: Single view of the chest demonstrates worsening low lung volumes with probable small effusions and atelectasis. Moderate infiltrate is seen right greater than left. There is no pneumothorax. The heart is prominent. Osseous structures stable. Impression: 1. Low lung volumes possibly due to a pulmonary fibrosis. 2. Questionable small effusions. 3. Increasing infiltrates right greater than left. Dictated by: Dictated on workstation # [id number]
--- NOTE | 2021-09-30 13:43 | Diagnostic Imaging Report ---
PROCEDURE: CT angiography of the chest with contrast. TECHNIQUE: Multiple contiguous axial images were obtained through the chest after uneventful bolus administration of intravenous contrast. 3D reconstructed CTA MIP acquisitions were also performed. Auto Exposure Controls were utilized during the CT exam to meet ALARA standards for radiation dose reduction. INDICATION: Cough, fever, shortness of air, bodyaches and sore throat. CTA of the chest from 09/30/2021. FINDINGS: There are diffuse airspace opacities throughout the right lung with a large focal consolidation involving much of the right lower lobe. Multiple lucencies scattered throughout the right lower lobe likely represent air bronchograms. There are similar findings in the left lower lobe to a lesser degree. Scattered infiltrates are seen within the lingula and portions of the upper lobes bilaterally right worse than left. There is no pneumothorax. There are marked emphysematous changes. There is a suggestion of underlying chronic interstitial disease. Additionally there is coarsening of the interstitium suggesting mild pulmonary edema. There is a small right pleural effusion with minimal pleural fluid on the left. There is a small amount of pericardial fluid. There is adenopathy within the right hilum with prominent lymph nodes throughout the mediastinum. The largest is seen on the right just anterior to the right hilum measuring 2 cm in greatest dimension. These are likely reactive but should be followed to assure resolution. Subcarinal adenopathy is also noted. There are no central or proximal segmental pulmonary emboli. Peripheral vessels not well evaluated due to incomplete opacification and diffuse abnormalities in the lower lobes. There is atherosclerotic disease along the aorta. The upper abdomen demonstrates hepatic steatosis. There is evidence of previous cholecystectomy. No acute process in the upper abdomen. There is no acute osseous abnormality. IMPRESSION: 1. Diffuse infiltrates predominantly throughout the right lower lobe and portions of the right upper lobe and middle lobe but also involving portions of the left lung. Tiny cystic changes within the consolidations especially in the right lower lobe noted some of which could be due to bronchiectasis. 2. Bilateral pleural effusions right greater than left 3. No central or proximal segmental emboli with peripheral vessels poorly characterized especially within the lower lobes a small embolus could be missed in this setting. 4. Mediastinal adenopathy and right hilar adenopathy likely reactive but followup recommended to assure resolution. Other findings as above. Dictated by: Dictated on workstation # [id number]
[2021-09-30] MEDS ORDERED: LACTATED RINGERS 1,000 ML IV SCH (13:45)
[2021-09-30] MEDS ORDERED: CEFEPIME INJECTION 1,000 MG in NS (IVPB) 50 ML IV ONE (13:45)
[2021-09-30] MEDS ORDERED: methylPREDNISolone 125 MG (Solu-MEDROL) VIAL IVP ONE (13:45)
[2021-09-30] MEDS ORDERED: ACETAMINOPHEN 500 MG TAB (TYLENOL) PO ONE (14:15)
[2021-09-30] MEDS ORDERED: ANTACID SUSP 30 ML UDC (MYLANTA) PO PRN (15:15)
[2021-09-30] MEDS ORDERED: ONDANSETRON 4 MG/2 ML (SDV) Z0FRAN IV PRN (15:15)
[2021-09-30] MEDS ORDERED: polyethylene glycoL POWDER 17 GM (MIRALAX) PACK PO PRN (15:15)
[2021-09-30] MEDS ORDERED: ONDANSETRON 4 MG (ZOFRAN) ORAL DISSOLVE TAB PO PRN (15:15)
[2021-09-30] MEDS ORDERED: MELATONIN 3 MG TABLET PO PRN (15:15)
[2021-09-30] MEDS ORDERED: AZITHROMYCIN INJECTION 500 MG in NS (IVPB) 250 ML IV NR (15:30)
[2021-09-30] MEDS ORDERED: CEFEPIME INJECTION 1,000 MG in NS (IVPB) 50 ML IV SCH (16:00)
[2021-09-30 16:08] VITALS: BP 97/55
[2021-09-30] MEDS: ENOXAPARIN 40 MG/0.4 ML (LOVENOX) SYR SC SCH (17:12)
[2021-09-30] MEDS: LACTATED RINGERS 1,000 ML IV SCH (17:12)
[2021-09-30] MEDS ORDERED: NS IV 1000 ML 1,000 ML IV SCH (18:45)
[2021-09-30 19:51] VITALS: BP 105/54
[2021-09-30] MEDS ORDERED: NS IV 1000 ML 1,000 ML ONE (20:41)
[2021-09-30] MEDS: CEFEPIME INJECTION 1,000 MG in NS (IVPB) 50 ML IV SCH (21:28)
[2021-10-01 00:40] VITALS: BP_SYST 109; BP_DIAS 33; BP_DIAS 73
[2021-10-01] MEDS: LACTATED RINGERS 1,000 ML IV SCH ×4 (01:42→21:02)
[2021-10-01] MEDS: CEFEPIME INJECTION 1,000 MG in NS (IVPB) 50 ML IV SCH ×4 (01:43→21:02)
[2021-10-01 04:47] VITALS: BP 114/63
[2021-10-01 05:47] LABS: BASOPHILS # (AUTO) 0.1 10^3/uL (0.0-0.1); BASOPHILS % (AUTO) 0 % (0-10); EOSINOPHILS % (AUTO) 0 % (0-10); HEMATOCRIT 44 % (40-54); HEMOGLOBIN 14.8 g/dL (13.3-17.7); LYMPHOCYTES # (AUTO) 1.2 10^3/uL (1.0-4.0); LYMPHOCYTES % (AUTO) 6 % (12-44); MEAN CORPUSCULAR HEMOGLOBIN 29 pg (25-34); MEAN CORPUSCULAR HGB CONC 33 g/dL (32-36); MEAN CORPUSCULAR VOLUME 87 fL (80-99); MEAN PLATELET VOLUME 9.1 fL (9.0-12.2); MONOCYTES % (AUTO) 5 % (0-12); NEUTROPHILS % (AUTO) 86 % (42-75); PLATELET COUNT 142 10^3/uL (130-400); WHITE BLOOD COUNT 19.7 10^3/uL (4.3-11.0)
[2021-10-01 06:13] LABS: POTASSIUM 4.1 MMOL/L (3.6-5.0)
[2021-10-01 06:14] LABS: CALCIUM 8.3 MG/DL (8.5-10.1)
[2021-10-01 06:19] LABS: CREATININE SERUM 0.89 MG/DL (0.60-1.30)
[2021-10-01 08:00] VITALS: BP 90/46
[2021-10-01] MEDS: AZITHROMYCIN 250 MG TAB (ZITHROMAX) PO SCH (09:23)
[2021-10-01 12:00] VITALS: BP 105/57
[2021-10-01] MEDS: ENOXAPARIN 40 MG/0.4 ML (LOVENOX) SYR SC SCH (15:32)
[2021-10-01 15:39] VITALS: BP 123/72
--- NOTE | 2021-10-01 17:51 | History & Physical-Hospitalist ---
History of Present Illness HPI/Chief Complaint Stefano Regalado is a 71 year old male with PMH chronic respiratory failure with hypoxia on home oxygen who presented with shortness of breath. He reports that he has been feeling sick for a while. He has had cold symptoms. He has had a cough. He denies fevers. He denies abdominal pain, nausea, vomiting, and diarrhea. He has not been taking any antibiotics. He has been taking some vitamins, supplements, and herbal remedies. Source: patient Exam Limitations: no limitations Date Seen 10/01/21 Time Seen by a Provider: 10:30 Attending Physician Radha Domínguez MD PCP No,Local Physician Referring Physician Date of Admission Sep 30, 2021 at 13:54 Home Medications & Allergies Home Medications Reviewed patient Home Medication Reconciliation performed by pharmacy medication reconciliations analytical lab technician and/or nursing. Patients Allergies have been reviewed. Allergies Allergies Coded Allergies No Known Drug Allergies (Mbieieyrud35/24/21) Past Mapxciz-Szzyhv-Eutkvx Hx Patient Social History Tobacco Use?: No Smoking Status: Never a Smoker Substance use?: No Alcohol Use?: No Pt feels they are or have been: No Immunizations Up To Date First/Initial COVID19 Vaccinat: Nov 2019 Second COVID19 Vaccination Henry: Nov 2019 Current Status Advance Directives: Yes Advance Directive Location: Home Communicates: Verbally Primary Language: Tristanian Preferred Spoken Language: Tristanian Is interpretation needed?: No Implanted or Applied Medical D: Orthopedic hardware Family Medical History No Pertinent Family Hx Review of Systems Constitutional: no symptoms reported EENTM: no symptoms reported Respiratory: cough, short of breath Cardiovascular: no symptoms reported Gastrointestinal: no symptoms reported Genitourinary: no symptoms reported Musculoskeletal: muscle pain Skin: no symptoms reported Psychiatric/Neurological: No Symptoms Reported Physical Exam Physical Exam Vital Signs Vital Signs - First Documented Capillary Refill : Less Than 3 Seconds Height, Weight, BMI Height: '" Weight: lbs. oz. kg; 31.68 BMI Method: General Appearance: No Apparent Distress, Obese HEENT: PERRL/EOMI, Pharynx Normal Neck: Normal Inspection, Supple Respiratory: Lungs Clear, Normal Breath Sounds, No Respiratory Distress Cardiovascular: Regular Rate, Rhythm, No Edema, No Murmur Gastrointestinal: Normal Bowel Sounds, Non Tender, Soft Extremity: Normal Inspection, Non Tender, No Pedal Edema Neurologic/Psychiatric: Alert, Oriented x3, No Motor/Sensory Deficits, Normal Mood/Affect Skin: Normal Color, Warm/Dry Results Results/Procedures Labs Laboratory Tests 09/30/21 11:30 10/01/21 05:20 Patient resulted labs reviewed. Imaging: Reviewed Imaging Report Assessment/Plan Admission Diagnosis Severe sepsis Admission Status: Inpatient Order (span 2 midnights) Reason for Inpatient Admission: Pneumonia Assessment and Plan Severe sepsis Pneumonia Lactic acidosis Chronic respiratory failure with hypoxia CXR consistent with pneumonia Procal elevated Started on Cefepime and Azithromycin IV fluids Supplemental oxygen Hyperglycemia Check A1C Obesity Clinically significant, no acute management needs DVT prophylaxis: Lovenox Diagnosis/Problems Diagnosis/Problems (1) Severe sepsis Status: Acute (2) Pneumonia Status: Acute (3) Chronic respiratory failure with hypoxia Status: Chronic (4) Hyperglycemia Status: Acute (5) Lactic acidosis Status: Acute (6) Obesity Status: Chronic RADHA DOMÍNGUEZ MD Oct 01, 2021 17:51
[2021-10-01 19:32] VITALS: BP 144/66
[2021-10-02 00:50] VITALS: BP 116/53
[2021-10-02] MEDS: CEFEPIME INJECTION 1,000 MG in NS (IVPB) 50 ML IV SCH ×4 (03:00→19:06)
[2021-10-02 04:59] VITALS: BP 112/56
[2021-10-02] MEDS: LACTATED RINGERS 1,000 ML IV SCH ×2 (05:53→16:19)
[2021-10-02 05:58] LABS: BASOPHILS # (AUTO) 0.1 10^3/uL (0.0-0.1); BASOPHILS % (AUTO) 0 % (0-10); EOSINOPHILS % (AUTO) 0 % (0-10); HEMATOCRIT 44 % (40-54); HEMOGLOBIN 14.8 g/dL (13.3-17.7); LYMPHOCYTES # (AUTO) 1.4 10^3/uL (1.0-4.0); LYMPHOCYTES % (AUTO) 6 % (12-44); MEAN CORPUSCULAR HEMOGLOBIN 29 pg (25-34); MEAN CORPUSCULAR HGB CONC 34 g/dL (32-36); MEAN CORPUSCULAR VOLUME 86 fL (80-99); MEAN PLATELET VOLUME 9.9 fL (9.0-12.2); MONOCYTES # (AUTO) 2.3 10^3/uL (0.0-1.0); MONOCYTES % (AUTO) 10 % (0-12); NEUTROPHILS % (AUTO) 81 % (42-75); PLATELET COUNT 168 10^3/uL (130-400); WHITE BLOOD COUNT 22.3 10^3/uL (4.3-11.0)
[2021-10-02 06:19] LABS: POTASSIUM 3.9 MMOL/L (3.6-5.0)
[2021-10-02 06:20] LABS: CALCIUM 8.5 MG/DL (8.5-10.1)
[2021-10-02 06:25] LABS: CREATININE SERUM 0.77 MG/DL (0.60-1.30)
[2021-10-02 07:27] VITALS: BP 164/61
[2021-10-02] MEDS: AZITHROMYCIN 250 MG TAB (ZITHROMAX) PO SCH (09:27)
[2021-10-02 11:18] VITALS: BP 154/78
[2021-10-02 15:30] VITALS: BP 144/83
[2021-10-02] MEDS ORDERED: RT-ALBUTEROL/IPRATROPIUM 3 ML (DUONEB) VIAL INH PRN (16:00)
[2021-10-02] MEDS: ACETAMINOPHEN 325 MG TABLET PO PRN (16:19)
[2021-10-02] MEDS: ENOXAPARIN 40 MG/0.4 ML (LOVENOX) SYR SC SCH (16:20)
[2021-10-02 20:10] VITALS: BP 136/71
--- NOTE | 2021-10-02 22:50 | Progress Note - Hospitalist ---
Subjective HPI/CC On Admission Date Seen by Provider: Oct 02, 2021 Time Seen by Provider: 10:35 Stefano Regalado is a 71 year old male with PMH chronic respiratory failure with hypoxia on home oxygen who presented with shortness of breath. He reports that he has been feeling sick for a while. He has had cold symptoms. He has had a cough. He denies fevers. He denies abdominal pain, nausea, vomiting, and diarrhea. He has not been taking any antibiotics. He has been taking some vitamins, supplements, and herbal remedies. Subjective/Events-last exam He is still feeling weak. He is short of breath and coughing. Focused Exam Lactate Level 09/30/21 13:47: Lactic Acid Level 2.54*H 09/30/21 16:40: Lactic Acid Level 2.36*H 10/01/21 05:20: Lactic Acid Level 1.53 Objective Exam Vital Signs Vital Signs Date Time Temp Pulse Resp B/P (MAP) Pulse Ox O2 Delivery O2 Flow Rate FiO2 10/02/21 20:59 Nasal Cannula 2.00 10/02/21 20:10 37.0 83 18 136/71 (92) 100 Capillary Refill : Less Than 3 Seconds General Appearance: No Apparent Distress, Obese Respiratory: No Respiratory Distress, Crackles Cardiovascular: Regular Rate, Rhythm, No Edema, No Murmur Gastrointestinal: Normal Bowel Sounds, Non Tender, Soft Extremity: Normal Inspection, Non Tender, No Pedal Edema Neurologic/Psychiatric: Alert, Oriented x3 Skin: Normal Color, Warm/Dry Results/Procedures Lab Laboratory Tests 10/02/21 05:20 Patient resulted labs reviewed. Imaging: Reviewed Imaging Report Assessment/Plan Assessment and Plan Assess & Plan/Chief Complaint Severe sepsis Pneumonia Chronic respiratory failure with hypoxia CXR consistent with pneumonia Procal elevated Continue Cefepime and Azithromycin IV fluids Supplemental oxygen Hyperglycemia A1C pending Obesity Clinically significant, no acute management needs DVT prophylaxis: Lovenox Lactic acidosis, resolved Diagnosis/Problems Diagnosis/Problems (1) Severe sepsis Status: Acute (2) Pneumonia Status: Acute (3) Chronic respiratory failure with hypoxia Status: Chronic (4) Hyperglycemia Status: Acute (5) Lactic acidosis Status: Acute (6) Obesity Status: Chronic MELANIE DOMÍNGUEZ MD Oct 02, 2021 22:50
[2021-10-03 00:27] VITALS: BP 109/56
[2021-10-03] MEDS: CEFEPIME INJECTION 1,000 MG in NS (IVPB) 50 ML IV SCH ×2 (02:27→09:39)
[2021-10-03 04:30] VITALS: BP 122/59
[2021-10-03 06:20] LABS: BASOPHILS # (AUTO) 0.1 10^3/uL (0.0-0.1); BASOPHILS % (AUTO) 0 % (0-10); EOSINOPHILS # (AUTO) 0.1 10^3/uL (0.0-0.3); EOSINOPHILS % (AUTO) 0 % (0-10); HEMATOCRIT 45 % (40-54); HEMOGLOBIN 15.1 g/dL (13.3-17.7); LYMPHOCYTES # (AUTO) 1.7 10^3/uL (1.0-4.0); LYMPHOCYTES % (AUTO) 12 % (12-44); MEAN CORPUSCULAR HEMOGLOBIN 29 pg (25-34); MEAN CORPUSCULAR HGB CONC 34 g/dL (32-36); MEAN CORPUSCULAR VOLUME 87 fL (80-99); MEAN PLATELET VOLUME 9.5 fL (9.0-12.2); MONOCYTES % (AUTO) 15 % (0-12); NEUTROPHILS # (AUTO) 9.8 10^3/uL (1.8-7.8); NEUTROPHILS % (AUTO) 71 % (42-75); PLATELET COUNT 171 10^3/uL (130-400); WHITE BLOOD COUNT 13.8 10^3/uL (4.3-11.0)
[2021-10-03 06:49] LABS: CALCIUM 8.9 MG/DL (8.5-10.1); CREATININE SERUM 0.77 MG/DL (0.60-1.30); POTASSIUM 3.8 MMOL/L (3.6-5.0)
[2021-10-03 08:29] VITALS: BP 140/75
[2021-10-03] MEDS ORDERED: ASPI-824 PO (09:12)
[2021-10-03] MEDS: LACTATED RINGERS 1,000 ML IV SCH ×2 (09:38→11:23)
[2021-10-03] MEDS: AZITHROMYCIN 250 MG TAB (ZITHROMAX) PO SCH (09:39)
[2021-10-03] MEDS: ACETAMINOPHEN 325 MG TABLET PO PRN (09:42)
[2021-10-03] MEDS ORDERED: LEVO750T39 PO (11:11)
[2021-10-03 11:56] VITALS: BP 125/72
--- NOTE | 2021-10-03 22:58 | Discharge Summary ---
Discharge Summary Hospital Course Problems/Dx: (1) Severe sepsis Status: Acute (2) Pneumonia Status: Acute (3) Chronic respiratory failure with hypoxia Status: Chronic (4) Hyperglycemia Status: Acute (5) Lactic acidosis Status: Acute (6) Obesity Status: Chronic Hospital Course Date of Admission: Sep 30, 2021 at 13:54 Admission Diagnosis : Family Physician/Provider: No,Local Physician Date of Discharge: 10/03/21 Discharge Diagnosis: [ ] Hospital Course: [ ] Labs and Pending Lab Test: Laboratory Tests 10/03/21 06:04: White Blood Count 13.8H, Red Blood Count 5.16, Hemoglobin 15.1, Hematocrit 45, Mean Corpuscular Volume 87, Mean Corpuscular Hemoglobin 29, Mean Corpuscular Hemoglobin Concent 34, Red Cell Distribution Width 13.5, Platelet Count 171, Mean Platelet Volume 9.5, Immature Granulocyte % (Auto) 1, Neutrophils (%) (Auto) 71, Lymphocytes (%) (Auto) 12, Monocytes (%) (Auto) 15H, Eosinophils (%) (Auto) 0, Basophils (%) (Auto) 0, Neutrophils # (Auto) 9.8H, Lymphocytes # (Auto) 1.7, Monocytes # (Auto) 2.0H, Eosinophils # (Auto) 0.1, Basophils # (Auto) 0.1, Immature Granulocyte # (Auto) 0.2H, Sodium Level 137, Potassium Level 3.8, Chloride Level 101, Carbon Dioxide Level 27, Anion Gap 9, Blood Urea Nitrogen 11, Creatinine 0.77, Estimat Glomerular Filtration Rate 100, BUN/Creatinine Ratio 14, Glucose Level 113H, Calcium Level 8.9 Microbiology 09/30/21 Blood Culture - Preliminary, Resulted No growth Home Meds Active Levofloxacin 750 Mg Tablet 750 Mg PO DAILY 5 Days Reported Lo-Dose Aspirin EC (Aspirin) 81 Mg Tablet.dr 81 Mg PO DAILY Discharge Physical Examination Vital Signs Vital Signs Date Time Temp Pulse Resp B/P (MAP) Pulse Ox O2 Delivery O2 Flow Rate FiO2 10/03/21 16:05 10/03/21 13:00 89 10/03/21 11:56 36.8 20 99 Nasal Cannula 2.00 Allergies: Coded Allergies: No Known Drug Allergies (Unverified , 09/30/21) Discharge Summary Date of Admission Sep 30, 2021 at 13:54 Date of Discharge Oct 03, 2021 at 16:05 Discharge Date: Oct 03, 2021 Admission Diagnosis Severe sepsis Discharge Diagnosis Severe sepsis Pneumonia Chronic respiratory failure with hypoxia CXR consistent with pneumonia Procal elevated Continue Cefepime and Azithromycin IV fluids Supplemental oxygen Hyperglycemia A1C pending Obesity Clinically significant, no acute management needs DVT prophylaxis: Lovenox Lactic acidosis, resolved (1) Severe sepsis Status: Acute (2) Pneumonia Status: Acute (3) Chronic respiratory failure with hypoxia Status: Chronic (4) Hyperglycemia Status: Acute (5) Lactic acidosis Status: Acute (6) Obesity Status: Chronic MELANIE DOMÍNGUEZ MD Oct 03, 2021 22:58
== END 2021-10-03 16:05 | disposition home or self-care (01) | DRG 871 ==
LOC: EDUNIT# 11:15 → ER 11:19 → 4TH 13:54
PROVIDERS: ADMIT Internal Medicine; ATTEND Internal Medicine
DX: A41.9 Sepsis, unspecified organism (principal); J18.9 Pneumonia, unspecified organism; J96.11 Chronic respiratory failure with hypoxia; E87.2 Acidosis; R65.20 Severe sepsis without septic shock; R73.9 Hyperglycemia, unspecified; E66.9 Obesity, unspecified; Z68.31 Body mass index [BMI] 31.0-31.9, adult; Z20.822 Contact with and (suspected) exposure to COVID-19
CPT/HCPCS: 36415; 71045; 71275; 80048; 80053; 82805; 83036; 83605; 84145; 85007; 85025; 85027; 85379; 85610; 85730; 87040; 87636; 94760; 94761

== ENCOUNTER 2022-06-14 16:33 | Observation (INO) | payer OTHER, MEDICARE ==
[~2022-06-14] VITALS: Ht 172 cm; Wt 92.2 kg
[~2022-06-14 16:33] MED LIST changes: +ASPI-824 PO; +LEVO750T PO
[2022-06-14 17:02] LABS: BASOPHILS % (AUTO) 0 % (0-10); EOSINOPHILS % (AUTO) 0 % (0-10); HEMATOCRIT 52 % (40-54); HEMOGLOBIN 17.7 g/dL (13.3-17.7); LYMPHOCYTES # (AUTO) 2.1 10^3/uL (1.0-4.0); LYMPHOCYTES % (AUTO) 23 % (12-44); MEAN CORPUSCULAR HEMOGLOBIN 29 pg (25-34); MEAN CORPUSCULAR HGB CONC 34 g/dL (32-36); MEAN CORPUSCULAR VOLUME 87 fL (80-99); MEAN PLATELET VOLUME 8.8 fL (9.0-12.2); MONOCYTES % (AUTO) 11 % (0-12); NEUTROPHILS # (AUTO) 6.3 10^3/uL (1.8-7.8); NEUTROPHILS % (AUTO) 66 % (42-75); PLATELET COUNT 201 10^3/uL (130-400); WHITE BLOOD COUNT 9.5 10^3/uL (4.3-11.0)
[2022-06-14 17:05] LABS: ALBUMIN 4.2 GM/DL (3.2-4.5); CHLORIDE 99 MMOL/L (98-107); POTASSIUM 4.3 MMOL/L (3.6-5.0); SODIUM 138 MMOL/L (135-145)
[2022-06-14 17:06] LABS: CALCIUM 9.8 MG/DL (8.5-10.1)
[2022-06-14 17:07] LABS: GLUCOSE 130 MG/DL (70-105); TOTAL PROTEIN 8.7 GM/DL (6.4-8.2)
[2022-06-14 17:08] LABS: CARBON DIOXIDE 30 MMOL/L (21-32)
[2022-06-14 17:09] LABS: BILIRUBIN,TOTAL 0.7 MG/DL (0.1-1.0)
[2022-06-14 17:11] LABS: ALKALINE PHOSPHATASE 131 U/L (40-136); CREATININE SERUM 0.98 MG/DL (0.60-1.30); GFR ESTIMATED 82
[2022-06-14 17:12] LABS: BUN/CREATININE RATIO 11
[2022-06-14 17:14] LABS: ALANINE AMINOTRANSFERASE 28 U/L (0-55)
--- NOTE | 2022-06-14 17:26 | Diagnostic Imaging Report ---
INDICATION: Chest pain. Shortness of air. COMPARISON: 09/30/2021. FINDINGS: Single frontal radiographic view of the chest was obtained and shows stable cardiac silhouette and pulmonary vasculature. Lungs continue to show diffuse coarse interstitial opacities with more confluent airspace opacities in both lung bases. Overall, aeration is not significantly changed when compared to prior exam. Small effusions may be obscured. There is no pneumothorax. Osseous structures show no gross acute abnormalities. 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 No significant adverse interval change when compared to 09/30/2021. Dictated by: Dictated on workstation # [id number]
[2022-06-14] MEDS ORDERED: PROMETHAZINE/ CODEINE SYRUP 5 ML UDC PO ONE (17:30)
[2022-06-14] MEDS ORDERED: RT-ALBUTEROL HFA 8.5 GM INHALER IH STA (17:41)
--- NOTE | 2022-06-14 17:55 | ED Cough/URI ---
General Chief Complaint: COVID19 Suspect/Confirmed Stated Complaint: COVID + / - SOA Nursing Triage Note: PT TO RM 10 PER W/C PT ON O2 @3L PER N/C. PT TESTED COVID + FOR COVID TODAY, STATES SICK SINCE YESTERDAY. PT STATES COUGHING MORE AND HAS INCREASED SOA. PT SENT FROM [facility]. Source: patient Exam Limitations: no limitations History of Present Illness Date Seen by Provider: Jun 14, 2022 Time Seen by Provider: 16:51 Initial Comments Here with report of being COVID-positive and has had increasing cough and shortness of air over the last 24 hours. COVID positive test today. Does have significant history of chronic lung disease due to his best dose exposure and other exposures early in life. He is chronically on 3 L of oxygen per nasal cannula. Does have albuterol nebulizer at home but otherwise does not take any medicines except for uslq-bey-gzkqtqo medicines. He has previously followed with the [facility] but does not have a regular doctor currently. He moved to the [facility] 1 year ago. Denies nausea, vomiting or diarrhea. Does have right chest wall cramping that he believes is related to significant amount of coughing that he is having. Timing/Duration: yesterday, getting worse Severity/Quality: moderate, dry cough Prior Episodes/Possible Cause: occasional episodes Modifying Factors: Worse With Coughing Associated Symptoms: cough, fever/chills, nasal congestion, shortness of breath, sore throat Allergies and Home Medications Allergies Coded Allergies: No Known Drug Allergies (Unverified , 09/30/21) Patient Home Medication List Home Medication List Reviewed: Yes Aspirin (Lo-Dose Aspirin EC) 81 Mg Tablet., 81 MG PO DAILY, (Reported) Entered as Reported by: PATTI JUNIOR on 10/03/21 0912 Levofloxacin (Levofloxacin) 750 Mg Tablet, 750 MG PO DAILY Prescribed by: MELANIE DOMÍNGUEZ on 10/03/21 1111 Review of Systems Review of Systems Constitutional: see HPI; No chills, No fever EENTM: see HPI Respiratory: see HPI Cardiovascular: chest pain (Intermittent over the last 12 to 24 hours); No edema Genitourinary: No dysuria, No hematuria Musculoskeletal: muscle pain, muscle cramps Skin: no symptoms reported Psychiatric/Neurological: No Symptoms Reported All Other Systems Reviewed Negative Unless Noted: Yes Past Dfdhyfs-Xpwzph-Njaiww Hx Patient Social History Tobacco Use?: No Substance use?: No Alcohol Use?: No Immunizations Up To Date First/Initial COVID19 Vaccinat: Nov 2019 Second COVID19 Vaccination Henry: Nov 2019 Past Medical History Surgery/Hospitalization HX: None Surgeries: Yes Gallbladder, Orthopedic Respiratory: Yes Chronic Bronchitis Cardiac: No Neurological: No Genitourinary: No Gastrointestinal: No Musculoskeletal: No Endocrine: No Family Medical History Reviewed Nursing Family Hx No Pertinent Family Hx Physical Exam Vital Signs - First Documented 06/14/22 16:41 Temp 37.4 Pulse 95 Resp 45 B/P (MAP) 164/96 (118) O2 Delivery Nasal Cannula O2 Flow Rate 2.00 Capillary Refill : Less Than 3 Seconds Height: '" Weight: lbs. oz. kg; 31.00 BMI Method: General Appearance: WD/WN, no apparent distress HEENT: PERRL/EOMI, pharyngeal erythema Neck: full range of motion, supple Respiratory: no accessory muscle use, crackles (Moderate bilateral bases), wheezing (Few trace upper right greater than left) Cardiovascular: regular rate, rhythm, no murmur Gastrointestinal: non tender, soft Extremities: non-tender, normal inspection Neurologic/Psychiatric: alert, oriented x 3 Skin: normal color, warm/dry Progress/Results/Core Measures Suspected Sepsis SIRS Temperature: Pulse: 95 Respiratory Rate: 45 Laboratory Tests 06/14/22 16:40: White Blood Count 9.5 Blood Pressure 164 /96 Mean: 118 Laboratory Tests 06/14/22 16:40: Creatinine 0.98, Platelet Count 201, Total Bilirubin 0.7 Results/Orders Lab Results Laboratory Tests Test 06/14/22 16:40 Range/Units White Blood Count 9.5 4.3-11.0 10^3/uL Red Blood Count 6.04 H 4.30-5.52 10^6/uL Hemoglobin 17.7 13.3-17.7 g/dL Hematocrit 52 40-54 % Mean Corpuscular Volume 87 80-99 fL Mean Corpuscular Hemoglobin 29 25-34 pg Mean Corpuscular Hemoglobin Concent 34 32-36 g/dL Red Cell Distribution Width 13.6 10.0-14.5 % Platelet Count 201 130-400 10^3/uL Mean Platelet Volume 8.8 L 9.0-12.2 fL Immature Granulocyte % (Auto) 0 % Neutrophils (%) (Auto) 66 42-75 % Lymphocytes (%) (Auto) 23 12-44 % Monocytes (%) (Auto) 11 0-12 % Eosinophils (%) (Auto) 0 0-10 % Basophils (%) (Auto) 0 0-10 % Neutrophils # (Auto) 6.3 1.8-7.8 10^3/uL Lymphocytes # (Auto) 2.1 1.0-4.0 10^3/uL Monocytes # (Auto) 1.0 0.0-1.0 10^3/uL Eosinophils # (Auto) 0.0 0.0-0.3 10^3/uL Basophils # (Auto) 0.0 0.0-0.1 10^3/uL Immature Granulocyte # (Auto) 0.0 0.0-0.1 10^3/uL D-Dimer 0.66 H 0.00-0.49 UG/ML Sodium Level 138 135-145 MMOL/L Potassium Level 4.3 3.6-5.0 MMOL/L Chloride Level 99 98-107 MMOL/L Carbon Dioxide Level 30 21-32 MMOL/L Anion Gap 9 5-14 MMOL/L Blood Urea Nitrogen 11 7-18 MG/DL Creatinine 0.98 0.60-1.30 MG/DL Estimat Glomerular Filtration Rate 82 BUN/Creatinine Ratio 11 Glucose Level 130 H 70-105 MG/DL Calcium Level 9.8 8.5-10.1 MG/DL Corrected Calcium 9.6 8.5-10.1 MG/DL Total Bilirubin 0.7 0.1-1.0 MG/DL Aspartate Amino Transf (AST/SGOT) 30 5-34 U/L Alanine Aminotransferase (ALT/SGPT) 28 0-55 U/L Alkaline Phosphatase 131 40-136 U/L Troponin I < 0.028 <0.028 NG/ML C-Reactive Protein High Sensitivity 1.92 H 0.00-0.50 MG/DL Total Protein 8.7 H 6.4-8.2 GM/DL Albumin 4.2 3.2-4.5 GM/DL Procalcitonin 0.05 <0.10 NG/ML My Orders Orders - TAMMIE CLEMENS MD Cbc With Automated Diff (06/14/22 16:50) Comprehensive Metabolic Panel (06/14/22 16:50) Hs C Reactive Protein (06/14/22 16:50) Procalcitonin (Pct) (06/14/22 16:50) Troponin I [place] (06/14/22 16:50) Chest 1 View, Ap/Pa Only (06/14/22 16:50) Ed Iv/Invasive Line Start (06/14/22 16:50) Ekg Tracing (06/14/22 16:50) Monitor-Rhythm Ecg Trace Only (06/14/22 16:50) Fibrin Degradation Products (06/14/22 16:56) Promethazine/ Codeine Syrup (Phenergan W (06/14/22 17:30) Albuterol Inhaler (Albuterol) (06/14/22 17:41) Rx-Nirmatrelvir/Ritonavir(Eua) (Rx-Paxlo (06/14/22 18:00) Prednisone Tablet (Deltasone Tablet) (06/14/22 18:00) Medications Given in ED Current Medications Medications Dose Ordered Sig/Aaron Route Start Time Stop Time Status Last Admin Dose Admin Promethazine HCl/ Codeine 5 ml ONCE ONCE PO 06/14/22 17:30 06/14/22 17:31 DC 06/14/22 17:49 5 ML Vital Signs/I&O 06/14/22 16:41 Temp 37.4 Pulse 95 Resp 45 B/P (MAP) 164/96 (118) O2 Delivery Nasal Cannula O2 Flow Rate 2.00 Capillary Refill : Less Than 3 Seconds Blood Pressure Mean: 118 Progress Note : Progress Note Seen and evaluated. IV, labs, chest x-ray and EKG ordered. Procalcitonin and CRP ordered. Patient is known COVID-positive. Monitor patient. 1800: Renal function is good. Patient is not on other medicines that would interfere with Paxlovid. Phenergan with codeine initiated. Albuterol MDI 4 puffs via chamber ordered and done. I did discuss at length with the patient regarding Paxlovid and COVID therapeutics for persons of his condition including the chronic renal disease. I believe he would benefit from this medication. We did discuss side effects and interaction concerns. Ultimately patient agreed. We will initiate that now. Prednisone 40 mg p.o. ordered as well due to the chronic lung disease and wheezing. He has albuterol nebulizer treatments at home. Discharged home with return precautions. Patient verbalized understanding instructions and agreement with plan. ECG Initial ECG Impression Date: Jun 14, 2022 Initial ECG Impression Time: 16:53 Initial ECG Rate: 88 Initial ECG Rhythm: Normal Sinus Comment Sinus rhythm with left anterior fascicular block. Left axis deviation. No evidence of ST elevation AR. No previous available for comparison. Interpreted by me. Diagnostic Imaging Diagonstic Imaging: Xray Plain Films/CT/US/NM/MRI: chest Comments [facility] [place] NAME: KAVEH NGUYEN [facility] REC#: [id number] PT STATUS: REG ER : 1950 PHYSICIAN: TAMMIE CLEMENS MD ADMIT DATE: 06/14/22/ER Draft Date of Exam:06/14/22 CHEST 1 VIEW, AP/PA ONLY INDICATION: Chest pain. Shortness of air. COMPARISON: 09/30/2021. FINDINGS: Single frontal radiographic view of the chest was obtained and shows stable cardiac silhouette and pulmonary vasculature. Lungs continue to show diffuse coarse interstitial opacities with more confluent airspace opacities in both lung bases. Overall, aeration is not significantly changed when compared to prior exam. Small effusions may be obscured. There is no pneumothorax. Osseous structures show no gross acute abnormalities. 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 No significant adverse interval change when compared to 09/30/2021. Dictated on workstation # [id number] Dict: 06/14/22 1720 Trans: 06/14/22 1726 [facility] [id number] Interpreted by: DAVI NAZARIO MD Electronically signed by: Departure Impression Primary Impression: COVID-19 virus infection Additional Impression: Chest wall pain Disposition: 01 HOME, SELF-CARE Condition: Stable Departure-Patient Inst. Decision time for Depature: 18:06 Referrals: NO,LOCAL PHYSICIAN (PCP/Family) Primary Care Physician Patient Instructions: COVID-19 (DC), Nirmatrelvir and Ritonavir FDA Fact Sheet Add. Discharge Instructions: All discharge instructions reviewed with patient and/or family. Voiced understanding. Take medications as directed. Follow-up with your doctor in a few days for recheck. Return for worse pain, fever, vomiting, weakness, breathing problems or other concerns as needed. You may continue your home albuterol nebulizer treatments 1 treatment every 4 hours as needed for wheezing. You may take Tylenol/acetaminophen 1000 mg every 6-8 hours as needed for fever or pain. Drink plenty of fluids and get plenty of rest. Continue home oxygen as previously prescribed. Scripts Promethazine HCl/Codeine (Prometh-Codein 6.25-10 mg/5 ml) 6.25 Mg-10 Mg/5 Ml (5 Ml) Syrup 5 ML PO Q6H PRN for COUGH, #80 ML 0 Refills Prov: TAMMIE CLEMENS MD 06/14/22 Prednisone (Prednisone) 20 Mg Tab 40 MG PO DAILY, #6 TAB 0 Refills Prov: TAMMIE CLEMENS MD 06/14/22 TAMMIE CLEMENS MD Jun 14, 2022 17:55
[2022-06-14] MEDS ORDERED: predniSONE 20 MG TAB PO ONE (18:00)
[2022-06-14] MEDS ORDERED: PROM5SYR PO (18:04)
[2022-06-14] MEDS ORDERED: PRD20T PO (18:04)
[2022-06-14] MEDS ORDERED: ORPHENADRINE 60 MG/2 ML (NORFLEX) AMP (ED ONLY) IV STA (18:35)
[2022-06-14] MEDS ORDERED: dexAMETHasone 6 MG TAB (DECADRON) PO STA (18:43)
[2022-06-14] MEDS ORDERED: fentaNYL INJ 100 MCG/2 ML AMP IVP ONE (18:45)
[2022-06-14 20:03] VITALS: BP 150/69
[2022-06-14 20:28] VITALS: BP 164/96
[2022-06-14] MEDS ORDERED: RT-ALBUTEROL HFA 8.5 GM INHALER IH PRN (20:45)
[2022-06-14] MEDS: RX-NIRMATRELVIR/RITONAVIR (PAXLOVID) #30 TABS PO SCH (21:47)
[2022-06-14] MEDS ORDERED: fentaNYL INJ 100 MCG/2 ML AMP ONE (22:34)
[2022-06-14] MEDS ORDERED: fentaNYL INJ 100 MCG/2 ML AMP IVP PRN (23:15)
[2022-06-15] VITALS (8 sets, daily range): BP systolic 113–134; BP diastolic 58–75
[2022-06-15] MEDS: PROMETHAZINE/ CODEINE SYRUP 5 ML UDC PO PRN ×2 (00:04→05:41)
[2022-06-15] MEDS: fentaNYL INJ 100 MCG/2 ML AMP IVP PRN ×2 (04:59→13:04)
[2022-06-15] MEDS: CATHETER FLUSH 10 ML SYR IVP SCH ×3 (05:09→20:28)
[2022-06-15] MEDS: RX-NIRMATRELVIR/RITONAVIR (PAXLOVID) #30 TABS PO SCH (05:40)
[2022-06-15] MEDS: dexAMETHasone 6 MG TAB (DECADRON) PO SCH (05:41)
[2022-06-15 06:22] LABS: BASOPHILS % (AUTO) 0 % (0-10); EOSINOPHILS % (AUTO) 0 % (0-10); HEMATOCRIT 47 % (40-54); HEMOGLOBIN 15.4 g/dL (13.3-17.7); LYMPHOCYTES # (AUTO) 1.8 10^3/uL (1.0-4.0); LYMPHOCYTES % (AUTO) 17 % (12-44); MEAN CORPUSCULAR HEMOGLOBIN 29 pg (25-34); MEAN CORPUSCULAR HGB CONC 33 g/dL (32-36); MEAN CORPUSCULAR VOLUME 87 fL (80-99); MEAN PLATELET VOLUME 8.9 fL (9.0-12.2); MONOCYTES # (AUTO) 1.2 10^3/uL (0.0-1.0); MONOCYTES % (AUTO) 11 % (0-12); NEUTROPHILS # (AUTO) 7.5 10^3/uL (1.8-7.8); NEUTROPHILS % (AUTO) 71 % (42-75); PLATELET COUNT 169 10^3/uL (130-400); WHITE BLOOD COUNT 10.6 10^3/uL (4.3-11.0)
[2022-06-15 06:29] LABS: CHLORIDE 100 MMOL/L (98-107); POTASSIUM 4.1 MMOL/L (3.6-5.0); SODIUM 135 MMOL/L (135-145)
[2022-06-15 06:31] LABS: CALCIUM 9.1 MG/DL (8.5-10.1); GLUCOSE 117 MG/DL (70-105)
[2022-06-15 06:32] LABS: CARBON DIOXIDE 25 MMOL/L (21-32)
[2022-06-15 06:35] LABS: CREATININE SERUM 0.92 MG/DL (0.60-1.30); GFR ESTIMATED 88
[2022-06-15 06:36] LABS: BUN/CREATININE RATIO 13
[2022-06-15] MEDS ORDERED: NIRMATRELVIR/RITONAVIR (PAXLOVID) TABLET PO SCH (07:30)
[2022-06-15] MEDS ORDERED: ASCO-262 PO (11:29)
[2022-06-15] MEDS ORDERED: OMEG1CAP24 PO (11:29)
[2022-06-15] MEDS ORDERED: ALBU2.5V4 NEB (11:29)
[2022-06-15] MEDS ORDERED: GINK1TAB PO (11:29)
[2022-06-15] MEDS ORDERED: MAG1CAPS5 PO (11:29)
--- NOTE | 2022-06-15 13:53 | History & Physical-Hospitalist ---
History of Present Illness HPI/Chief Complaint Patient is a 72-year-old male with a past medical history of COPD who presented to the emergency department due to cough and COVID diagnosis. He started feeling ill 2 days ago and tested himself for COVID yesterday and it was positive at home. He had increasing cough and shortness of breath with severe coughing fits. 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 He wears 3 L of oxygen at all time and has been on his baseline oxygen requirement. He reports his shortness of breath and cough is better but he had a very bad coughing fit this morning that improved with nebulized breathing treatment. He was actually going to be discharged from the emergency room yesterday but given severity of coughing he was observed overnight as he is high risk for progression of COVID. He was started on Paxlovid in the emergency department. He does report feeling better overall today but thinks he may be a little dehydrated. Source: patient Date Seen 06/15/22 Time Seen by a Provider: 10:00 Attending Physician No,Local Physician PCP Admitting Physician: Shantell Figueroa MD Attending Physician: Shantell Figueroa MD Referring Physician Date of Admission Jun 14, 2022 at 18:35 Home Medications & Allergies Home Medications Reviewed patient Home Medication Reconciliation performed by pharmacy medication reconciliations reliability technicians and/or nursing. Patients Allergies have been reviewed. Allergies Allergies Coded Allergies No Known Drug Allergies (Icioeprkrp99/24/21) Past Gydsscz-Nclxzt-Reqyee Hx Patient Social History Tobacco Use?: No Use of E-Cig and/or Vaping dev: No Substance use?: No Alcohol Use?: No Pt feels they are or have been: No Immunizations Up To Date First/Initial COVID19 Vaccinat: Nov 2019 Second COVID19 Vaccination Henry: Nov 2019 Tetanus Booster (TDap): Less Than 5 Years Hepatitis A: Yes Hepatitis B: Yes Current Status Advance Directives: Yes Advance Directive Location: Family to bring in copy Communicates: Verbally Primary Language: Slovak Preferred Spoken Language: Slovak Is interpretation needed?: No Sensory deficits: Vision impairment Implanted or Applied Medical D: None Past Medical History Surgeries: Gallbladder, Orthopedic Chronic Bronchitis Family Medical History Reviewed Nursing Family Hx No Pertinent Family Hx Review of Systems Constitutional: fever EENTM: no symptoms reported Respiratory: cough, short of breath Cardiovascular: chest pain (tightness with coughing) Gastrointestinal: no symptoms reported Genitourinary: no symptoms reported Musculoskeletal: no symptoms reported Skin: no symptoms reported Psychiatric/Neurological: No Symptoms Reported Physical Exam Physical Exam Vital Signs Vital Signs - First Documented 06/14/22 06/15/22 20:03 10:14 Pulse Ox 96 FiO2 32 Capillary Refill : Less Than 3 Seconds Height, Weight, BMI Height: '" Weight: lbs. oz. kg; 31.16 BMI Method: General Appearance: No Apparent Distress, Chronically ill HEENT: PERRL/EOMI, Moist Mucous Membranes; No Scleral Icterus (L), No Scleral Icterus (R) Neck: Normal Inspection, Supple Respiratory: No Accessory Muscle Use, No Respiratory Distress, Decreased Breath Sounds; No Rhonci, No Wheezing Cardiovascular: Regular Rate, Rhythm, No JVD, No Murmur Gastrointestinal: Normal Bowel Sounds, Non Tender, Soft Extremity: Normal Capillary Refill, No Calf Tenderness, No Pedal Edema Neurologic/Psychiatric: Alert, Oriented x3, Normal Mood/Affect Skin: Normal Color, Warm/Dry Results Results/Procedures Labs Laboratory Tests 06/14/22 16:40 06/15/22 06:06 Patient resulted labs reviewed. Imaging: Reviewed Imaging Report Imaging [facility] [place], [place] NAME: KAVEH NGUYEN [facility] REC#: [id number] PT STATUS: ADM Carlitos : 1950 PHYSICIAN: TAMMIE CLEMENS MD ADMIT DATE: 06/14/22 Signed Date of Exam:06/14/22 CHEST 1 VIEW, AP/PA ONLY INDICATION: Chest pain. Shortness of air. COMPARISON: 09/30/2021. FINDINGS: Single frontal radiographic view of the chest was obtained and shows stable cardiac silhouette and pulmonary vasculature. Lungs continue to show diffuse coarse interstitial opacities with more confluent airspace opacities in both lung bases. Overall, aeration is not significantly changed when compared to prior exam. Small effusions may be obscured. There is no pneumothorax. Osseous structures show no gross acute abnormalities. 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 No significant adverse interval change when compared to 09/30/2021. Dictated by: Dictated on workstation # [id number] Dict: 06/14/22 1720 Trans: 06/15/22 0809 [facility] [id number] Interpreted by: DAVI NAZARIO MD Electronically signed by: DAVI NAZARIO MD 06/15/2209 Assessment/Plan Admission Diagnosis COVID19 Admission Status: Observation Assessment and Plan COVID19 Chronic respiratory failure Continue paxlovid COntinue supplemental oxygen Decadron due to baseline hypoxia Antitussives prn MAT protocol Hopefully hope tomorrow if continues to feel well Diagnosis/Problems Diagnosis/Problems (1) COVID-19 virus infection Status: Acute (2) Chest wall pain Status: Acute (3) Chronic respiratory failure with hypoxia Status: Chronic SHANTELL FIGUEROA MD Jun 15, 2022 13:53
[2022-06-15] MEDS: RT-ALBUTEROL HFA 8.5 GM INHALER IH SCH (20:19)
[2022-06-15] MEDS: NIRMATRELVIR/RITONAVIR (PAXLOVID) TABLET PO SCH (20:27)
[2022-06-16 04:25] VITALS: BP 149/70
[2022-06-16] MEDS: dexAMETHasone 6 MG TAB (DECADRON) PO SCH (06:00)
[2022-06-16] MEDS: CATHETER FLUSH 10 ML SYR IVP SCH (06:02)
[2022-06-16 07:53] VITALS: BP 118/64
[2022-06-16] MEDS: NIRMATRELVIR/RITONAVIR (PAXLOVID) TABLET PO SCH (09:36)
[2022-06-16] MEDS: RT-ALBUTEROL HFA 8.5 GM INHALER IH SCH (09:40)
[2022-06-16 11:44] VITALS: BP 125/59
[2022-06-16] MEDS ORDERED: ACHD5005 PO (12:09)
[2022-06-16] MEDS ORDERED: DEXA6TAB PO (12:09)
[2022-06-16] MEDS ORDERED: Promethazine/Codeine PO (12:09)
--- NOTE | 2022-06-16 12:11 | Discharge Inst-Simple/Standard ---
Discharge Inst-Standard Discharge Medications New, Converted or Re-Newed RX: Transmitted to Pharmacy Patient Instructions/Follow Up Plan of Care/Instructions/FU: Please continue to take your medications as written. Please follow up with your primary care doctor to follow up this hospital stay. Activity as Tolerated: Yes Discharge Diet: No Restrictions Return to The Hospital For: Chest pain, shortness of breath, fever, weakness, if you feel you are getting worse. SHANTELL FIGUEROA MD Jun 16, 2022 12:11
--- NOTE | 2022-06-16 12:16 | Discharge Summary ---
Diagnosis/Chief Complaint Date of Admission Jun 14, 2022 at 18:35 Date of Discharge Discharge Date: Jun 16, 2022 Admission Diagnosis COVID19 Primary Care No,Local Physician Discharge Diagnosis (1) COVID-19 virus infection Status: Acute (2) Chest wall pain Status: Acute (3) Chronic respiratory failure with hypoxia Status: Chronic Discharge Summary Discharge Physical Exam Allergies: Coded Allergies: No Known Drug Allergies (Unverified , 09/30/21) Vitals & I&Os Vital Signs Date Time Temp Pulse Resp B/P (MAP) Pulse Ox O2 Delivery O2 Flow Rate FiO2 06/16/22 11:44 36.7 73 20 125/59 (81) 97 Nasal Cannula 2.00 06/15/22 10:14 32 General Appearance: No Apparent Distress, WD/WN Respiratory: Lungs Clear, No Accessory Muscle Use Cardiovascular: Regular Rate, Rhythm, No Murmur Neurologic/Psychiatric: Alert, Oriented x3 Hospital Course Patient was admitted to the hospital secondary to COVID-19 infection with chest wall pain and coughing fits. He was monitored and started on Paxlovid and Decadron and did well. He was able to be discharged home in stable improved condition. He did have some severe abdominal pain due to his extreme coughing fits that were improving. He was sent home with hydrocodone for this. He did ask about a lesion on his abdomen which appeared to be a keloid. I did recommend that he follow-up with his primary care provider for this as if it continues to grow it may need a biopsy. Labs (last 24 hrs) Patient resulted labs reviewed. Imaging: Reviewed Imaging Report Discussion & Recommendations Discharge Planning: >30 minutes discharge planning Discharge Home Medications: Active Scripts Active Hydrocodone-Acetamin 5-325 mg (Hydrocodone/Acetaminophen) 5 Mg-325 Mg Tablet 1 Tab PO Q4H PRN Dexamethasone 6 Mg Tablet 6 Mg PO DAILY@0700 [Promethazine/Codeine] 5 ML Syrp 5 Ml PO Q6H PRN Reported Vitamin C (Ascorbate Calcium) 500 Mg Tablet 500 Mg PO DAILY [employer] Memory Supp Caplet (Ginkgo/Choline Bitartrate) 120 Mg-110 Mg Tablet 1 Each PO DAILY K-mg Citrate 99-70 mg Capsule (Mag Citrate/Potassium Citrate) 70 Mg-99 Mg Capsule 1 Each PO DAILY [place] 3 Fish Oil Softgel ([place]-3 Fatty Acids/Fish Oil) 684 Mg-1,200 Mg Capsule.dr 1 Each PO DAILY Albuterol Sulfate 2.5 Mg/3 Ml (0.083 %) Vial.neb 3 Ml NEB Q6H PRN Instructions to patient/family Please see electronic discharge instructions given to patient. SHANTELL FIGUEROA MD Jun 16, 2022 12:16
== END 2022-06-16 12:12 | disposition home or self-care (01) ==
LOC: EDUNIT# 16:33 → ER 16:35 → 4TH 18:35 → UNDOADMOB 18:35 → 4TH 21:52 → UNDODISOB 06-16 12:12
PROVIDERS: ADMIT Family Medicine; ATTEND Family Medicine
DX: U07.1 COVID-19 (principal); R07.89 Other chest pain; J44.9 Chronic obstructive pulmonary disease, unspecified; J96.11 Chronic respiratory failure with hypoxia; J98.4 Other disorders of lung; Z77.090 Contact with and (suspected) exposure to asbestos; Z99.81 Dependence on supplemental oxygen; Z79.82 Long term (current) use of aspirin
CPT/HCPCS: 36415; 71045; 80048; 80053; 84145; 84484; 85025; 85379; 86141; 93005; 93041; 94640; 94760; 96374; 96375; 96376; G0378